=== PATIENT | male | born 1995 | race Caucasian/White ===

== ENCOUNTER 2019-11-06 07:52 | Emergency (ER) | payer OTHER, SELFPAY ==
[2019-11-06 08:00] VITALS: BP 131/74; PULSE 89; RESP 18; TEMP 36; O2SAT 98; BMI 22.4
[2019-11-06 08:08] LABS: Bacteria Urine None Seen
--- NOTE | 2019-11-06 08:09 | DI.CT.S_ITS ---
PROCEDURE: CT ABDOMEN PELVIS WO CON INDICATIONS: hematuria RLQ pain TECHNIQUE: Noncontrast 5 mm thick sections acquired from the diaphragms to the symphysis. 5 mm coronal and sagittal reformats were then performed. For radiation dose reduction, the following was used: automated exposure control, adjustment of mA and/or kV according to patient size. COMPARISON: None. FINDINGS: Image quality: Excellent. ABDOMEN: Lung bases: Lung bases are clear. Heart size is normal. Solid organs: Liver is enlarged, and demonstrates diffusely decreased density, indicating fatty infiltration. Gallbladder is within normal limits . Pancreas is normal in contours. Spleen is normal in size. No adrenal nodules. Kidneys are normal in size. There are small nonobstructing bilateral renal calculi, largest of which is in the left interpolar kidney measuring 4 mm diameter. There is no left hydronephrosis nor left ureteral dilatation. There is mild right hydronephrosis and mild diffuse right ureteral dilatation. There are 2 adjacent calculi within the distal right ureter, larger of which is more distal, measuring 5 mm and 452 Hounsfield units. The smaller is just proximal to this larger calculus, measuring 3 mm and 286 Hounsfield units. Peritoneum and bowel: Unenhanced bowel loops demonstrate normal wall thickness and caliber. No free fluid or air. Normal appendix. Nodes and vessels: No retroperitoneal or mesenteric adenopathy by size criteria. Aorta and inferior vena cava are normal in caliber. Miscellaneous: No ventral hernias. PELVIS: Genitourinary: Bladder wall thickness is normal. Miscellaneous: No inguinal hernias or adenopathy. Bones: No suspicious bony lesions. No vertebral body compression fractures. IMPRESSION: 1. Distal right ureteral calculi, associated with mild right hydronephrosis. 2. Small nonobstructing bilateral renal calculi. 3. Normal appendix. 4. Hepatic steatosis. Dictated by: Paulette Laughlin M.D. on 11/06/2019 at 8:38 Approved by: Paulette Laughlin M.D. on 11/06/2019 at 8:41
[2019-11-06 08:12] LABS: Appearance Urine UA TURBID; Bilirubin Urine UA 1+ (NEGATIVE); Color Urine UA RED; Glucose Urine UA NEGATIVE (Negative); Ketones Urine UA TRACE (NEGATIVE); Leukocyte Esterase Urine UA TRACE (NEGATIVE); Nitrite Urine UA NEGATIVE (Negative); Occult Blood Urine UA 3+ (Negative); Protein Urine UA 2+ (Negative); pH Urine UA 6.5 (4.5-8.0)
[2019-11-06 08:14] LABS: Add Manual Diff / Slide Review NO; Basophils Absolute Auto 100 /uL (0-100); Basophils Percent Auto 2.4 % (0-2); Eosinophils Absolute Auto 200 /uL (0-450); Eosinophils Percent Auto 3.3 % (2-4); Hematocrit 48.9 % (41-53); Hemoglobin 16.3 g/dL (13.5-17.5); Lymphocytes Absolute Auto 1800 /uL (1100-4500); Lymphocytes Percent Auto 31.3 % (25-40); Mean Corpuscular HGB Conc 33.3 % (30-36); Mean Corpuscular Hemoglobin 30.9 PG (26-34); Mean Corpuscular Volume 92.6 fL (80-100); Monocytes Absolute Auto 700 /uL (0-900); Monocytes Percent Auto 11.8 % (3-14); Neutrophils Absolute Auto 3000 /uL (1500-7000); Neutrophils Percent Auto 51.2 % (50-75); Platelet Count 239 X10^3/uL (150-400); Red Blood Cell Count 5.28 X10^6/uL (4.5-5.9); Red Cell Distribution Width 12.8 % (11.6-14.8); White Blood Cell Count 5.8 X10^3/uL (4.5-11.0)
--- NOTE | 2019-11-06 08:16 | ED_ITS ---
HPI - Abdominal Pain General Chief Complaint: Abdominal Pain Stated Complaint: has been peeing blood all day yesterday Time Seen by Provider: 11/06/19 07:56 Source: patient and family Mode of arrival: Ambulatory Limitations: no limitations History of Present Illness HPI narrative: cc: urinating Blood. HPI: The patient is a 24-year-old male who presents to the emergency department with the onset of urinating blood this morning. He developed pain in his right lower quadrant yesterday which radiates down into his area of the inguinal ligament and his scrotum. He has had 1 kidney stone before. The pain feels s imilar to that. He denies any fall or injury. The pain is 10/10 in intensity and is very uncomfortable rubbing holding the area very reluctant to answer questions. He has felt nauseous but has not vomited. He has had no fever chills or sweats. He denies any difficulty with a sore throat talking or dysphagia as well as no shortness of breath cough chest pain palpitations or dizziness. He states that he has not vomited in years. He has had no change in bowel movements. He is not on any blood thinners. He admits to smoking cigarettes drinking alcohol and smoking marijuana. He denies a history of diabetes mellitus hypertension asthma or any congenital heart disease. He denies a history venereal disease. He denies a history of hepatitis TB or HIV. He has not had Topping it and denies being tested for it. Related Data Previous Rx's Medication Instructions Recorded amoxicillin-pot clavulanate 875 mg PO BID #20 tab 05/07/16 [Augmentin] fluticasone propionate 1 spray INTRANASAL BID #16 gm 05/07/16 cephalexin [Keflex] 500 mg PO TID #15 cap 11/06/19 ondansetron HCl [Zofran] 4 mg PO Q6H PRN #12 tab 11/06/19 oxycodone 5 mg PO Q6H PRN #10 tab 11/06/19 tramadol 50 mg PO Q6H PRN #12 tab 11/06/19 Allergies Allergy/AdvReac Type Severity Reaction Status Date / Time No Known Drug Allergies Allergy Verified 11/06/19 08:12 Review of Systems Review of Systems Narrative: His review of systems were all negative except for those mentioned in history of present illness. Patient History Social History Smoking Status: Current every day smoker Smoking Status: Current every day smoker alcohol intake frequency: 3 or more drinks per day Substance Use Type: does not use Exam Narrative Exam Narrative: PHYSICAL EXAM: CONSTITUTIONAL: Awake, Alert, Oriented, in moderate distress. He is writhing in pain holding his right lower quadrant. HEAD: AT/NC EENT: PERRL, FROM of eyes, no discharge, no nystagmus, no icterus. NOSE:No epistaxis or nasal drainage MOUTH:Oral mucosa is moist and pink. NECK: Supple, no obvious JVD, Trachea is midline without stridor. SPINE: Palpation of the cervical, Thoracic, Lumbar or Sacral spine reveals no gross deformity or tenderness. Mild right CVA tenderness. THORAX: No deformity, retractions, chest wall tenderness. LUNGS: Clear, symmetrical breath sounds without respiratory distress. HEART: Normal heart tones, regular rhythm and rate without murmur. ABDOMEN: Soft, , mild tenderness in the right lower quadrant over the inguinal ligament without gurading, BS present. does not allow scrotal exam at this time, too uncomfortable EXTREMITIES: No edema, deformity, tenderness or cyanosis. SKIN: No rash, bruising, petechiae or purpura. NEURO: Awake, alert, oriented, conversive, cranial nerves II-XII are symmetrical , moves all 4 extremities and is ambulatory. MENTAL HEALTH: Does not appear anxious or depressed. Initial Vital Signs Initial Vital Signs: Vital Signs Temperature 96.8 F L 11/06/19 08:00 Pulse Rate 89 11/06/19 08:00 Respiratory Rate 18 11/06/19 08:00 Blood Pressure 131/74 11/06/19 08:00 Pulse Oximetry 98 11/06/19 08:00 Course Course Course Narrative: CT of the patient's abdomen reveals: IMPRESSION: 1. Distal right ureteral calculi, associated with mild right hydronephrosis. 2. Small nonobstructing bilateral renal calculi. 3. Normal appendix. 4. Hepatic steatosis. Dictated by: Paulette Laughlin M.D. on 11/06/2019 at 8:38 Approved by: Paulette Laughlin M.D. on 11/06/2019 at 8:41 The patient has 2 stones in the distal ureter 1 of which is 5 mm the other 1 is 3 mm. She should be able to pass thse stones. The patient will be referred to Dr. Moore. Orders Ordered: Discontinued Medications Sodium Chloride (Normal Saline 0.9%) 1,000 mls @ 1,000 mls/hr IV BOLUS ONE Stop: 11/06/19 09:10 Last Infusion: 11/06/19 09:39 Dose: 0 mls/hr Documented by: Admin: 11/06/19 08:18 Dose: 1,000 mls/hr Documented by: CAM Sodium Chloride (Normal Saline 0.9%) 1,000 mls @ 1,000 mls/hr IV BOLUS ONE Stop: 11/06/19 09:14 Last Admin: 11/06/19 09:39 Dose: Not Given Documented by: ARACELY Ketorolac Tromethamine (Toradol) 30 mg IV NOW ONE Stop: 11/06/19 08:25 Last Admin: 11/06/19 08:53 Dose: 30 mg Documented by: ARACELY Morphine Sulfate (Morphine) 4 mg IV NOW ONE Stop: 11/06/19 08:10 Last Admin: 11/06/19 08:17 Dose: 4 mg Documented by: CAM Tamsulosin HCl (Flomax) 0.4 mg PO NOW ONE Stop: 11/06/19 10:04 Last Admin: 11/06/19 10:14 Dose: 0.4 mg Documented by: CHANTELLE Vital Signs Vital signs: Vital Signs - 8 hr 11/06/19 08:00 11/06/19 08:20 11/06/19 08:30 Temperature 96.8 F L Pulse Rate 89 82 76 Respiratory Rate 18 Blood Pressure 131/74 130/92 H Pulse Oximetry 98 100 97 11/06/19 09:00 11/06/19 09:30 Temperature Pulse Rate 66 67 Respiratory Rate Blood Pressure 129/75 127/81 Pulse Oximetry 93 100 MDM - Abdominal Pain Lab Data Result diagrams: 11/06/19 08:00 11/06/19 08:00 Labs: Lab Results 11/06/19 11/06/19 11/06/19 Range/Units 08:00 08:00 08:00 WBC 5.8 (4.5-11.0) X10^3/uL RBC 5.28 (4.5-5.9) X10^6/uL Hgb 16.3 (13.5-17.5) g/dL Hct 48.9 (41-53) % MCV 92.6 (80-100) fL MCH 30.9 (26-34) PG MCHC 33.3 (30-36) % RDW 12.8 (11.6-14.8) % Plt Count 239 (150-400) X10^3/uL Neut % (Auto) 51.2 (50-75) % Lymph % (Auto) 31.3 (25-40) % [place] % (Auto) 11.8 (3-14) % Eos % (Auto) 3.3 (2-4) % Baso % (Auto) 2.4 H (0-2) % Neut # (Auto) 3000 (7130-3768) /uL Lymph # (Auto) 1800 (3978-6301) /uL [place] # (Auto) 700 (0-900) /uL Eos # (Auto) 200 (0-450) /uL Baso # (Auto) 100 (0-100) /uL PT 10.5 (10.1-12.7) SECONDS INR 0.9 (0.9-1.3) APTT 32 (26.4-36.2) SECONDS Sodium 139 (137-145) mmol/L Potassium 3.6 (3.4-5.1) mmol/L Chloride 104 (98-107) mmol/L Carbon Dioxide 27 (22-32) mmol/L BUN 13 (9-20) mg/dL Creatinine 0.89 (0.66-1.25) mg/dL Estimated GFR > 60.0 (>60) mL/min BUN/Creatinine Ratio 14.6 (6-22) Glucose 105 H (70-100) mg/dL Calcium 9.9 (8.4-10.2) mg/dL Total Bilirubin 1.4 H (0.2-1.3) mg/dL AST 62 H (17-59) IU/L ALT 92 H (<50) IU/L Alkaline Phosphatase 95 (38-126) U/L Total Protein 7.6 (6.3-8.2) g/dL Albumin 4.7 (3.5-5.0) g/dL Globulin 2.9 (1.7-4.1) g/dL Albumin/Globulin Ratio 1.6 (1.0-2.8) Lipase (23-300) U/L Urine Color Urine Appearance Urine pH (4.5-8.0) Ur Specific [place] (1.000-1.035) Urine Protein (Negative) Urine Glucose (UA) (Negative) g/dL Urine Ketones (NEGATIVE) Urine Occult Blood (Negative) Urine Nitrate (Negative) Urine Bilirubin (NEGATIVE) Ur Bilirubin Confirm (Negative) Urine Urobilinogen (0.2) E.U./dL Ur Leukocyte Esterase (NEGATIVE) Urine RBC (0-5/HPF) Urine WBC (0-5/HPF) Urine Bacteria (None) Ur Culture Indicated? U Opiates 300ng/mL cut (Negative) Ur Oxycodone Screen (Negative) Urine Methadone Screen (Negative) Ur Barbiturates Screen (Negative) U Tricyclic Antidepress (Negative) Ur Phencyclidine Scrn (Negative) Ur Amphetamines Screen (Negative) U Methamphetamines Scrn (Negative) Ur MDMA Scrn (Ecstasy) (Negative) U Benzodiazepines Scrn (Negative) Urine Cocaine Screen (Negative) U Marijuana (THC) Screen (Negative) Ethyl Alcohol 52 H ( - 10) mg/dL 11/06/19 11/06/19 11/06/19 Range/Units 08:00 08:00 08:00 WBC (4.5-11.0) X10^3/uL RBC (4.5-5.9) X10^6/uL Hgb (13.5-17.5) g/dL Hct (41-53) % MCV (80-100) fL MCH (26-34) PG MCHC (30-36) % RDW (11.6-14.8) % Plt Count (150-400) X10^3/uL Neut % (Auto) (50-75) % Lymph % (Auto) (25-40) % [place] % (Auto) (3-14) % Eos % (Auto) (2-4) % Baso % (Auto) (0-2) % Neut # (Auto) (2663-4607) /uL Lymph # (Auto) (0946-0001) /uL [place] # (Auto) (0-900) /uL Eos # (Auto) (0-450) /uL Baso # (Auto) (0-100) /uL PT (10.1-12.7) SECONDS INR (0.9-1.3) APTT (26.4-36.2) SECONDS Sodium (137-145) mmol/L Potassium (3.4-5.1) mmol/L Chloride (98-107) mmol/L Carbon Dioxide (22-32) mmol/L BUN (9-20) mg/dL Creatinine (0.66-1.25) mg/dL Estimated GFR (>60) mL/min BUN/Creatinine Ratio (6-22) Glucose (70-100) mg/dL Calcium (8.4-10.2) mg/dL Total Bilirubin (0.2-1.3) mg/dL AST (17-59) IU/L ALT (<50) IU/L Alkaline Phosphatase (38-126) U/L Total Protein (6.3-8.2) g/dL Albumin (3.5-5.0) g/dL Globulin (1.7-4.1) g/dL Albumin/Globulin Ratio (1.0-2.8) Lipase 62 (23-300) U/L Urine Color Red Urine Appearance Turbid Urine pH 6.5 (4.5-8.0) Ur Specific [place] 1.020 (1.000-1.035) Urine Protein 2+ H (Negative) Urine Glucose (UA) Negative (Negative) g/dL Urine Ketones Trace H (NEGATIVE) Urine Occult Blood 3+ H (Negative) Urine Nitrate Negative (Negative) Urine Bilirubin 1+ H (NEGATIVE) Ur Bilirubin Confirm Positive H (Negative) Urine Urobilinogen 2.0 H (0.2) E.U./dL Ur Leukocyte Esterase Trace H (NEGATIVE) Urine RBC >100/hpf H (0-5/HPF) Urine WBC 30-100/hpf H (0-5/HPF) Urine Bacteria None seen (None) Ur Culture Indicated? Specimen cultured U Opiates 300ng/mL cut Negative (Negative) Ur Oxycodone Screen Negative (Negative) Urine Methadone Screen Negative (Negative) Ur Barbiturates Screen Negative (Negative) U Tricyclic Antidepress Negative (Negative) Ur Phencyclidine Scrn Negative (Negative) Ur Amphetamines Screen Positive H (Negative) U Methamphetamines Scrn Negative (Negative) Ur MDMA Scrn (Ecstasy) Negative (Negative) U Benzodiazepines Scrn Negative (Negative) Urine Cocaine Screen Positive H (Negative) U Marijuana (THC) Screen Negative (Negative) Ethyl Alcohol ( - 10) mg/dL Discharge Plan Departure Patient Disposition: Home Clinical Impression: Acute right lower quadrant pain, Ureteric colic, Calculus, ureteral Hematuria Qualifiers: Hematuria type: gross Qualified Code(s): R31.0 - Gross hematuria Hydronephrosis Qualifiers: Hydronephrosis type: with ureteral calculous obstruction Qualified Code(s): N 13.2 - Hydronephrosis with renal and ureteral calculous obstruction Discharge Date/Time: 11/06/19 10:48 Instructions: DI for Kidney Stones Activity Restrictions/Additional Instructions: 1. Drink 2-4 L of fluid per day. 2. Follow-up with your primary care physician in 48-72 hours. 3. Follow-up with the urologist , call his office for an appointment. 4. Take Tylenol 500 mg every 4 hours or 1 g every 6 hours for the pain and discomfort. 5. For the pain on relieved by Tylenol take tramadol 50 mg 1-2 tablets every 6 hours. 6. For pain on relieved by Tylenol and tramadol take oxycodone 5 mg worse. 7. For nausea and vomiting take Zofran 4 mg every 6 hours. 8 if you develop severe pain on relieved by this cocktail you need to return to the emergency department. 9. Take Keflex 500 mg 3 times a day for the next 5 days. 10 take Flomax as prescribed per day for the next 7 days. Prescriptions: New cephalexin [Keflex] 500 mg capsule 500 mg PO TID Qty: 15 RF: 0 ondansetron HCl [Zofran] 4 mg tablet 4 mg PO Q6H PRN (Reason: nausea and vomiting) Qty: 12 RF: 0 tramadol 50 mg tablet 50 mg PO Q6H PRN (Reason: pain) Qty: 12 RF: 0 oxycodone 5 mg tablet 5 mg PO Q6H PRN (Reason: pain) Qty: 10 RF: 0 No Action fluticasone propionate 16 GM spray,suspension 1 spray Intranasal BID Qty: 16 RF: 0 amoxicillin-pot clavulanate [Augmentin] 875 MG/125 MG tablet 875 mg PO BID Qty: 20 RF: 0 Referrals: Amy Moore MD [Physician] - (right ureteral stone with mild hydronephrosis )
[2019-11-06 08:17] LABS: Ur Creatinine Normal (Normal); Ur Specific Gravity Normal (Normal); Urine pH Normal (Normal)
[2019-11-06] MEDS: MORPHINE 4 MG/ML INJ IV (08:17)
[2019-11-06 08:18] LABS: UR Morphine/Opiate cutoff 300 Negative (Negative); Urine Amphetamines Positive (Negative); Urine Barbiturates Negative (Negative); Urine Benzodiazepines Negative (Negative); Urine Cocaine Positive (Negative); Urine MDMA Negative (Negative); Urine Methadone Negative (Negative); Urine Methamphetamines Negative (Negative); Urine Oxycodone Negative (Negative); Urine Phencyclidine Negative (Negative); Urine Tetrahydrocannabinol Negative (Negative); Urine Tricyclic Antidepressant Negative (Negative)
[2019-11-06] MEDS: SODIUM CHLORIDE 0.9% 1,000 ML 1000 ML IV (08:18)
[2019-11-06 08:19] LABS: INR 0.9 (0.9-1.3); Prothrombin Time 10.5 SECONDS (10.1-12.7)
[2019-11-06 08:20] VITALS: PULSE 82; O2SAT 100
[2019-11-06 08:20] LABS: RBC Urine >100/HPF (0-5/HPF)
[2019-11-06 08:21] LABS: Culture Indicated Urine Specimen Cultured; WBC Urine 30-100/HPF (0-5/HPF)
[2019-11-06 08:22] LABS: PTT Partial Thromboplastin Tim 32 SECONDS (26.4-36.2)
[2019-11-06 08:23] LABS: Ictotest Urine Positive (Negative)
[2019-11-06 08:24] LABS: Alanine Aminotransferase 92 IU/L (<50); Albumin 4.7 g/dL (3.5-5.0); Albumin Globulin Ratio 1.6 (1.0-2.8); Alkaline Phosphatase 95 U/L (38-126); Aspartate Aminotransferase 62 IU/L (17-59); BUN Creatinine Ratio 14.6 (6-22); Bilirubin Total 1.4 mg/dL (0.2-1.3); Blood Urea Nitrogen 13 mg/dL (9-20); Calcium 9.9 mg/dL (8.4-10.2); Carbon Dioxide 27 mmol/L (22-32); Chloride 104 mmol/L (98-107); Estimated Glomerular Filt Rate > 60.0 mL/min (>60); Ethanol (ETOH) 52 mg/dL; Globulin 2.9 g/dL (1.7-4.1); Glucose 105 mg/dL (70-100); HEMOLYSIS < 15 (0-50); Potassium 3.6 mmol/L (3.4-5.1); Sodium 139 mmol/L (137-145); Total Protein 7.6 g/dL (6.3-8.2)
[2019-11-06 08:30] VITALS: BP 130/92; PULSE 76; O2SAT 97
[2019-11-06 08:35] LABS: Lipase 62 U/L (23-300)
[2019-11-06] MEDS: KETOROLAC 60 MG/2 ML VIAL 30 MG IV (08:53)
[2019-11-06 09:00] VITALS: BP 129/75; PULSE 66; O2SAT 93
[2019-11-06 09:30] VITALS: BP 127/81; PULSE 67; O2SAT 100
[2019-11-06 10:00] VITALS: BP 128/70; PULSE 78; O2SAT 99
--- NOTE | 2019-11-06 10:02 | PC.NURSE ---
Patient given a urinal and strainer for kidney stones.
[2019-11-06] MEDS: TAMSULOSIN 0.4 MG CAPSULE PO (10:14)
== END 2019-11-06 10:48 | disposition home or self-care (01) ==
PROVIDERS: Emergency Provider Emergency Medicine
DX: N13.2 Hydronephrosis with renal and ureteral calculous obstruction (principal); R31.0 Gross hematuria; N23 Unspecified renal colic
CPT/HCPCS: 36415; 74176; 80053; 80305; 80320; 81001; 83690; 85025; 85610; 85730; 87086; 96361; 96374; 96375; 99284; J1885; J2270

== ENCOUNTER 2019-12-05 00:52 | Emergency (ER) | payer OTHER, SELFPAY ==
[2019-12-05 01:02] VITALS: BP 135/95; PULSE 94; RESP 18; TEMP 36.5; O2SAT 94; BMI 23.2
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
[2019-12-05 02:45] VITALS: BP 132/87; PULSE 95; RESP 18; O2SAT 98
== END 2019-12-05 02:46 | disposition home or self-care (01) ==
PROVIDERS: Emergency Provider Emergency Medicine
DX: S02.642A Fracture of ramus of left mandible, initial encounter for closed fracture (principal); S02.19XA Other fracture of base of skull, initial encounter for closed fracture; Y04.2XXA Assault by strike against or bumped into by another person, initial encounter
CPT/HCPCS: 70486; 99283; 99284

== ENCOUNTER → 2020-10-16 18:09 | Outpatient (CLI) | payer OTHER, SELFPAY ==
[2020-10-16 19:11] LABS: COVID19 -Nasal RAPID Negative (Negative)
== END ==
PROVIDERS: Referring Provider Family Medicine; Visit Provider Family Medicine
DX: Z20.822 Contact with and (suspected) exposure to COVID-19 (principal)
CPT/HCPCS: 87635

== ENCOUNTER 2022-02-21 17:54 | Emergency (ER) | payer SELFPAY ==
[2022-02-21 18:21] VITALS: BP 141/88; PULSE 107; RESP 15; TEMP 36.2; O2SAT 99; BMI 22.4
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
--- NOTE | 2022-02-21 19:44 | ED.LOWEXIN ---
HPI - Extremity Injury (Lower) <AUSTIN Blake - Last Filed: 02/21/22 19:58> General Chief Complaint: Extremity Injury, Lower Stated Complaint: R foot pain, hit concrete floor Time Seen by Provider: 02/21/22 19:40 Source: patient Mode of arrival: Family Vehicle History of Present Illness HPI Narrative: This is a 27-year-old male presents to the emergency department after he injured his right foot trying to Stomp on something but hit a concrete floor instead. Complains of severe heel pain, states that he has numbness to the plantar aspect of his forefoot, denies any open wound. States this happened just prior to arrival, denies ankle or knee pain. He states that his midfoot on the plantar aspect is itchy, swollen, and when he puts weight on his foot it causes severe pain. Related Data Previous Rx's Medication Instructions Recorded amoxicillin 875 mg-potassium 875 mg PO BID #20 tabs 05/07/16 clavulanate 125 mg tablet (Augmentin) fluticasone propionate 50 1 spray intranasal BID ##16 05/07/16 mcg/actuation nasal spray,suspension cephalexin 500 mg capsule (Keflex) 500 mg PO TID #15 caps 11/06/19 ondansetron HCl 4 mg tablet 4 mg PO Q6H PRN nausea and 11/06/19 (Zofran) vomiting #12 tabs oxycodone 5 mg tablet 5 mg PO Q6H PRN pain #10 tabs 11/06/19 tramadol 50 mg tablet 50 mg PO Q6H PRN pain #12 tabs 11/06/19 tramadol 50 mg tablet 50 mg PO BID PRN pain #10 tabs 02/21/22 Allergies Allergy/AdvReac Type Severity Reaction Status Date / Time No Known Drug Allergies Allergy Verified 02/21/22 18:19 Review of Systems <AUSTIN Blake - Last Filed: 02/21/22 19:58> Review of Systems Narrative: Review of systems is negative for acute abnormalities unless otherwise noted in HPI Patient History <AUSTIN Blake - Last Filed: 02/21/22 19:58> Medical History Sinusitis, acute Social History Smoking Status: Current every day smoker Smoking Status: Current every day smoker tobacco type: cigarettes alcohol intake frequency: 3 or more drinks per day Substance Use Type: does not use Exam <AUSTIN Blake - Last Filed: 02/21/22 19:58> Narrative Exam Narrative: Reviewed vitals signs and nursing notes. General: cooperative, comfortable, in no acute distress, well groomed HEENT: symmetrical facial expressions, moist mucous membranes MSK: moves all extremities, neurovascularly intact, no weakness, normal tone, right foot with normal range of motion, dorsiflexion and plantar extension are intact without deficit, PT and DP pulses are 2+, brisk cap refill, no tenderness to bilateral malleoli, no tenderness to dorsum of the metatarpals, proximal 5th metatarsal, patient complains of pain at the calcaneus and edema to the plantar aspect of the midfoot with numbness and tingling to the forefoot on the plantar aspect only. Sensation is intact to the dorsum forefoot midfoot and hindfoot, there is ecchymosis to the mid foot on the plantar aspect with edema, no deformities, patient has a history of prior MTP joint fracture of the great toe 2 times. Skin: brisk capillary refill, without pallor or erythema, no open wounds, ecchymosis to the plantar aspect of his right mid foot Psych: mental status is grossly normal, congruent mood, normal affect, pleasant and cooperative Initial Vital Signs Initial Vital Signs: Vital Signs Temperature 97.1 F L 02/21/22 18:21 Pulse Rate 107 H 02/21/22 18:21 Respiratory Rate 15 02/21/22 18:21 Blood Pressure 141/88 H 02/21/22 18:21 Pulse Oximetry 99 02/21/22 18:21 Oxygen Delivery Method 02/21/22 18:21 <Gayle Guajardo DO - Last Filed: 02/22/22 03:11> Initial Vital Signs Initial Vital Signs: Vital Signs Temperature 97.1 F L 02/21/22 18:21 Pulse Rate 107 H 02/21/22 18:21 Respiratory Rate 15 02/21/22 18:21 Blood Pressure 141/88 H 02/21/22 18:21 Pulse Oximetry 99 02/21/22 18:21 Oxygen Delivery Method 02/21/22 18:21 Procedures <AUSTIN Blake - Last Filed: 02/21/22 19:58> Orthopedic Splinting/Casting Injury #1: Lower Extremity Injury Location: foot Lower Extremity Immobilizer: post-op shoe Post splinting neuro exam: intact Post splinting vascular exam: intact Placed by: Nursing Course <AUSTIN Blake - Last Filed: 02/21/22 19:58> Orders Ordered: ED Orders 02/21/22 18:25 XR foot RT min 3V Stat Discontinued Medications Ketorolac Tromethamine (Ketorolac 30 Mg/Ml Vial) 15 mg IM NOW ONE Stop: 02/21/22 19:46 Last Admin: 02/21/22 19:56 Dose: 15 mg Documented By: MAY Oxycodone/Acetaminophen (Oxycodone/Acetaminophen 5/325 Tablet) 1 tab PO NOW ONE Stop: 02/21/22 19:46 Last Admin: 02/21/22 19:57 Dose: 1 tab Documented By: MAY Vital Signs Vital signs: Vital Signs - 8 hr 02/21/22 18:21 Temperature 97.1 F L Pulse Rate 107 H Respiratory Rate 15 Blood Pressure 141/88 H Pulse Oximetry 99 Oxygen Delivery Method Room Air <Gayle Guajardo DO - Last Filed: 02/22/22 03:11> Orders Ordered: ED Orders 02/21/22 18:25 XR foot RT min 3V Stat Discontinued Medications Ketorolac Tromethamine (Ketorolac 30 Mg/Ml Vial) 15 mg IM NOW ONE Stop: 02/21/22 19:46 Last Admin: 02/21/22 19:56 Dose: 15 mg Documented By: MAY Oxycodone/Acetaminophen (Oxycodone/Acetaminophen 5/325 Tablet) 1 tab PO NOW ONE Stop: 02/21/22 19:46 Last Admin: 02/21/22 19:57 Dose: 1 tab Documented By: MAY Vital Signs Vital signs: Vital Signs - 8 hr 02/21/22 18:21 Temperature 97.1 F L Pulse Rate 107 H Respiratory Rate 15 Blood Pressure 141/88 H Pulse Oximetry 99 Oxygen Delivery Method Room Air MDM - Extremity Injury (Lower) <AUSTIN Blake - Last Filed: 02/21/22 19:58> Imaging Data Chest x-ray: Radiologist's Impression: PROCEDURE:? XR FOOT RT MIN 3V ? INDICATIONS:? injury ? TECHNIQUE:? 3 views of the foot were acquired.? ? COMPARISON:? None. ? FINDINGS:? ? Bones:? No fractures or dislocations.? No suspicious bony lesions.? ? Soft tissues:? No tibiotalar joint effusion.? Achilles tendon appears normal.? ? ? IMPRESSION:? No visualized acute fracture or dislocation. However, if clinical concern and/or pain persist, short interval imaging followup in 7-10 days is recommended, as occult injury cannot be definitively excluded. ? ? Dictated by: Jaye Chavis M.D. on 02/21/2022 at 19:43 ? ? Approved by: Jaye Chavis M.D. on 02/21/2022 at 19:44 ? MDM Narrative Medical decision making narrative: This is a 27-year-old male presents to the emergency department after he stomped on something to crush it but missed and hit the concrete instead. Complains of pain to his calcaneus of the right, edema to the mid foot with numbness and tingling to the plantar forefoot with normal sensation to the dorsum, deformities, normal range of motion, neurovascularly intact without deficit. X-ray of his right foot does not show visualized acute fracture dislocation, palpation of the metatarsals on the dorsum did not produce pain, proximal 5th metatarsal was nontender, no tenderness to his right ankle or a goal ligaments, he does not have tenderness to his right knee and is able to bear weight. He was fitted in a postop shoe, given Percocet and was complaining Toradol in the emergency department for his pain. Gave him prescription of tramadol, encouraged him to follow-up at [facility] if he has worsening of his pain. Patient is appropriate and amenable to discharge home. Vital signs are stable on repeat examination is unremarkable. Patient has been informed of results. Patient has been given strict return to ER precautions for any new or worsening symptoms. Patient understands to follow up closely with outpatient providers as instructed. Patient understands plan and agrees to discharge home. All questions and concerns answered at this time. Discharge Plan Departure Patient Disposition: Home Clinical Impression: Injury of foot, right Instructions: DI for Foot Pain, DI for Foot Sprain Activity Restrictions/Additional Instructions: *You have been diagnosed with an injury to your right foot without fracture. Please use ibuprofen, elevation, ice and Tylenol as needed for your pain for the next few days. Please follow-up at [facility] if your pain is worsening or if it is not getting better after 1-2 weeks. There is no visualized fracture on your x-ray today but if it is persistent, it is worth having another x-ray over the orthopedic office. Please use the walking shoe, crutches or a cane will be helpful. Ambulate as tolerated. This is most likely soft tissue injury which can take a while to heal especially if you are on your feet a lot. You can take Tylenol and ibuprofen with the tramadol that I gave you for pain. I wish you the best, sorry that this is a painful injury. *What to do: *Please continue to take your regular medications as directed. [x ] New medication prescriptions sent to your pharmacy: [ [facility]] [ ] New medication written as a paper prescription [ ] No new medications given *Please follow up with your primary care provider in 2-3 days, call for an appointment. Let them know you were seen in the Emergency Department and that we asked that you be seen for follow-up. We will electronically transmit a record of today's note if your PCP is in our system *If you do not have a primary care provider please contact [phone] to establish care with one of the [facility] primary care providers. *Return to Emergency Department if you should have any new, worsening, or concerning symptoms, such as [fever greater than 101F, chills, worsening pain, persistent vomiting or other bothersome symptoms]. Prescriptions: New tramadol 50 mg tablet 50 mg PO BID PRN (Reason: pain) Qty: 10 0RF No Action fluticasone propionate 16 GM spray,suspension 1 spray Intranasal BID Qty: 16 0RF amoxicillin-pot clavulanate [Augmentin] 875 MG/125 MG tablet 875 mg PO BID Qty: 20 0RF cephalexin [Keflex] 500 mg capsule 500 mg PO TID Qty: 15 0RF ondansetron HCl [Zofran] 4 mg tablet 4 mg PO Q6H PRN (Reason: nausea and vomiting) Qty: 12 0RF tramadol 50 mg tablet 50 mg PO Q6H PRN (Reason: pain) Qty: 12 0RF Rx Instructions: Take 1-2 tablets every 6 hours for kidney stone pain unrelieved by tylenol oxycodone 5 mg tablet 5 mg PO Q6H PRN (Reason: pain) Qty: 10 0RF Rx Instructions: Take 1-2 tablets every 6 hours for kidney stone pain unrelieved by tramadol Referrals: [facility] [Provider Group] (Follow-up if pain is worsening or not improving) Visit Report Forms: Patient Portal/API <Gayle Guajardo DO - Last Filed: 02/22/22 03:11> Cosign ED Attending Cosalyssaature Attestation: I was immediately available in the department for consultation. Documentation has been reviewed. I agree with assessment and plan.
--- NOTE | 2022-02-21 19:50 | PC.NURSE ---
States that he was going to kick a piece of wood to break it and he missed kicking the pavement - c/o pain to the area - no obvious deformity noted
[2022-02-21] MEDS: KETOROLAC 30 MG/ML VIAL 15 MG IM (19:56)
[2022-02-21] MEDS: OXYCODONE/ACETAMINOPHEN 5/325 TABLET 1 TAB PO (19:57)
== END 2022-02-21 20:25 | disposition home or self-care (01) ==
PROVIDERS: Emergency Provider Nurse Practitioner Critical Care Medicine
DX: S99.921A Unspecified injury of right foot, initial encounter (principal); W22.8XXA Striking against or struck by other objects, initial encounter
CPT/HCPCS: 73630; 96372; 99283; J1885

== ENCOUNTER 2022-03-13 18:48 | Emergency (ER) | payer SELFPAY ==
[2022-03-13] VITALS (13 sets, daily range): BP systolic 124–154; BP diastolic 75–99; PULSE 86–123; RESP 16–18; TEMP 37.3–39.2; O2SAT 92–100; BMI 22.5
--- NOTE | 2022-03-13 19:13 | DI.RAD.S_ITS ---
PROCEDURE: XR CHEST 1V INDICATIONS: suspected sepsis TECHNIQUE: One view of the chest was acquired. COMPARISON: None. FINDINGS: Surgical changes and devices: None. Lungs and pleura: Lungs are clear. No pleural effusions or pneumothorax. Mediastinum: Mediastinal contours appear normal. Heart size is normal. Bones and chest wall: No suspicious bony lesions. Overlying soft tissues appear unremarkable. IMPRESSION: 1. No acute cardiopulmonary disease. Dictated by: Brandyn Thorpe M.D. on 03/13/2022 at 21:06 Approved by: Brandyn Thorpe M.D. on 03/13/2022 at 21:06
[2022-03-13] MEDS: ONDANSETRON 4 MG/2 ML INJ IV (19:20)
[2022-03-13] MEDS: ACETAMINOPHEN 325 MG TABLET 975 MG PO (19:21)
[2022-03-13] MEDS: IBUPROFEN 400 MG TABLET 800 MG PO (19:21)
[2022-03-13] MEDS: SODIUM CHLORIDE 0.9% 1,000 ML 1000 ML IV ×2 (19:21→20:55)
[2022-03-13 19:46] LABS: Add Manual Diff / Slide Review NO; Basophils Absolute Auto 0 /uL (0-100); Basophils Percent Auto 0.2 % (0-2); Eosinophils Absolute Auto 0 /uL (0-450); Eosinophils Percent Auto 0.6 % (2-4); Hematocrit 41.7 % (41-53); Hemoglobin 14.3 g/dL (13.5-17.5); Lymphocytes Absolute Auto 300 /uL (1100-4500); Lymphocytes Percent Auto 8.3 % (25-40); Mean Corpuscular HGB Conc 34.3 % (30-36); Mean Corpuscular Hemoglobin 30.5 PG (26-34); Mean Corpuscular Volume 88.9 fL (80-100); Monocytes Absolute Auto 1000 /uL (0-900); Monocytes Percent Auto 24.1 % (3-14); Neutrophils Absolute Auto 2800 /uL (1500-7000); Neutrophils Percent Auto 66.8 % (50-75); Platelet Count 210 X10^3/uL (150-400); Red Cell Distribution Width 13.2 % (11.6-14.8); White Blood Cell Count 4.2 X10^3/uL (4.5-11.0)
[2022-03-13 19:55] LABS: INR 1.1 (0.9-1.3); Prothrombin Time 12.8 SECONDS (10.1-12.7)
[2022-03-13 19:58] LABS: PTT Partial Thromboplastin Tim 36 SECONDS (26-36)
[2022-03-13 20:01] LABS: Alanine Aminotransferase 21 IU/L (<50); Albumin 4.4 g/dL (3.5-5.0); Albumin Globulin Ratio 1.6 (1.0-2.8); Alkaline Phosphatase 93 U/L (38-126); Aspartate Aminotransferase 21 IU/L (17-59); BUN Creatinine Ratio 13.1 (6-22); Bilirubin Total 0.7 mg/dL (0.2-1.3); Blood Urea Nitrogen 11 mg/dL (9-20); Calcium 8.7 mg/dL (8.4-10.2); Carbon Dioxide 25 mmol/L (22-32); Chloride 96 mmol/L (98-107); Estimated Glomerular Filt Rate > 60 mL/min (>60); Globulin 2.8 g/dL (1.7-4.1); Glucose 102 mg/dL (70-100); HEMOLYSIS < 15 (0-50); Lipase 33 U/L (23-300); Potassium 3.6 mmol/L (3.4-5.1); Sodium 130 mmol/L (137-145); Total Protein 7.2 g/dL (6.3-8.2)
[2022-03-13 20:16] LABS: Lactate (Lactic Acid) 0.9 mmol/L (0.7-2.1)
[2022-03-13 20:18] LABS: Procalcitonin 0.13 ng/mL (<0.5)
--- NOTE | 2022-03-13 20:49 | DI.CT.S_ITS ---
PROCEDURE: CT KIDNEY URETER BLADDER (KUB) INDICATIONS: achy, low back pain, trouble urinating history of kidney stones TECHNIQUE: Axial sections were acquired from the lung bases to the pubic symphysis. Coronal and sagittal reformats were performed. For radiation dose reduction, the following was used: automated exposure control, adjustment of mA and/or kV according to patient size. COMPARISON: [facility], CT, CT ABDOMEN PELVIS WO CON, 11/06/2019, 8:19. FINDINGS: Image quality: Excellent. Lung bases: There is minimal atelectasis. Heart: Heart is normal in size. URINARY: Right Kidney and Ureter: There are 4 nonobstructing right renal stones, with the largest measuring up to 0.4 cm. No hydronephrosis. No hydroureter. Left Kidney and Ureter: There are 2 clustered stones in the bladder in the region of the left ureterovesicular junction, with the largest stone measuring up to 0.4 cm. There is no associated left hydronephrosis or hydroureter. There are 5 additional nonobstructing left renal stones, with the largest measuring up to 0.4 cm. Bladder: Normal wall thickness. ABDOMEN: Liver: Noncontrast evaluation of the liver demonstrates no discrete mass. Gallbladder: Within normal limits without calcified gallstones. Biliary ducts: No biliary ductal dilatation. Pancreas: Unremarkable. Spleen: Normal in size. Adrenal Glands: No adrenal nodules. Stomach and Bowel: Stomach, small bowel loops, and colon are normal in caliber and wall thickness. The appendix is normal in appearance. Peritoneum: No abnormal intraperitoneal fluid. No free air. Ventral Wall: No hernia. Abdominal Nodes: No retroperitoneal or mesenteric adenopathy by size criteria. Vessels: Aorta and inferior vena cava are normal in size. PELVIS: Pelvic Organs: Unremarkable. Pelvic Nodes: No enlarged lymph nodes. Miscellaneous: No inguinal hernias identified. Bones: Visualized osseous structures demonstrate no suspicious focal lesions. IMPRESSION: 1. Urinary stones in the bladder at the left ureterovesicular junction suggestive of recently passed stones. No associated hydronephrosis or hydroureter. 2. Bilateral nephrolithiasis as described. 3. No evidence of appendicitis. Dictated by: Brandyn Thorpe M.D. on 03/13/2022 at 22:21 Approved by: Brandyn Thorpe M.D. on 03/13/2022 at 22:26
--- NOTE | 2022-03-13 20:50 | ED.MALEGU ---
HPI - Male Genitourinary General Chief complaint: Urogenital-Male Stated complaint: Urinating blood, Kidney stone Time Seen by Provider: 03/13/22 19:26 Source: patient Mode of arrival: Ambulatory History of Present Illness HPI Narrative: 27-year-old male smoker with history of kidney stones presents with his significant other and a chief complaint low back pain and difficulty with urination for the past few days. He states that he is concerned that he has a urine infection but also feels like he is passing a kidney stone. He states he has a severe low back pain without radiation into his legs that is worse when he moves and improves with rest. He is had subjective fever and chills and feels like he is achy all over. He denies any headache, blurred vision or trouble with speech. He has no neck pain or chest pain but has had a dry and hacking cough. He is nauseated but denies any vomiting. Related Data Previous Rx's Medication Instructions Recorded amoxicillin 875 mg-potassium 875 mg PO BID #20 tabs 05/07/16 clavulanate 125 mg tablet (Augmentin) fluticasone propionate 50 1 spray intranasal BID ##16 05/07/16 mcg/actuation nasal spray,suspension cephalexin 500 mg capsule (Keflex) 500 mg PO TID #15 caps 11/06/19 ondansetron HCl 4 mg tablet 4 mg PO Q6H PRN nausea and 11/06/19 (Zofran) vomiting #12 tabs oxycodone 5 mg tablet 5 mg PO Q6H PRN pain #10 tabs 11/06/19 tramadol 50 mg tablet 50 mg PO Q6H PRN pain #12 tabs 11/06/19 tramadol 50 mg tablet 50 mg PO BID PRN pain #10 tabs 02/21/22 hydrocodone 5 mg-acetaminophen 325 1 tab PO Q4-6H PRN pain #10 tabs 03/13/22 mg tablet ketorolac 10 mg tablet 10 mg PO Q6H PRN pain #14 tabs 03/13/22 ondansetron 4 mg disintegrating 4 mg PO TID-QID PRN nausea and 03/13/22 tablet vomiting #10 tabs oseltamivir 75 mg capsule (Tamiflu) 75 mg PO BID 5 days #10 caps 03/13/22 Allergies Allergy/AdvReac Type Severity Reaction Status Date / Time No Known Drug Allergies Allergy Verified 03/13/22 19:10 Review of Systems Review of Systems Narrative: GENERAL: See HPI HEENT: Denies sinus pain, ear pain, sore throat, difficulty swallowing, dizziness. RESPIRATORY: See HPI CARDIOVASCULAR: Denies chest pain, palpitations, orthopnea, edema, GASTROINTESTINAL: Denies nausea, vomiting, abdominal pain, diarrhea, constipation, melena. : See HPI MUSCULOSKELETAL: denies weakness, joint pain, or bony pain SKIN: Denies rash, skin lesions, or other NEUROLOGIC: Denies weakness, headache, numbness, change in speech, confusion, seizures, incoordination. PSYCHIATRIC: No concerning psychosocial issues. 12 point review of systems is negative except for those stated above Patient History Medical History (Updated 03/13/22 @ 23:31 by Baldev Buckley DO) Sinusitis, acute Social History Smoking Status: Current every day smoker Smoking Status: Current every day smoker tobacco type: cigarettes alcohol intake frequency: holidays/special occasions only Substance Use Type: does not use Exam Narrative Exam Narrative: GENERAL: [27] year old patient appears stated age. Well-developed patient, in mild distress. HEAD: Atraumatic. Normocephalic. EYES: Pupils equal round and reactive. Extraocular motions intact. No scleral icterus. No injection or drainage. ENT: Nose without bleeding, purulent drainage. Throat without erythema, tonsillar hypertrophy or exudate. Airway patent. NECK: Trachea midline. Non tender. No meningeal sign CARDIOVASCULAR: Regular rate and rhythm without murmurs, gallops, or rubs. RESPIRATORY: Clear to auscultation. Breath sounds equal bilaterally. No wheezes, rales, or rhonchi. GASTROINTESTINAL: Abdomen soft, non-tender, nondistended. EXTREMITIES: No edema or joint tenderness. BACK: Nontender without deformity or crepitance. No flank tenderness. NEURO: AOx3. SKIN: No rash or erythema of visible areas Initial Vital Signs Initial Vital Signs: Vital Signs Temperature 102.5 F H 03/13/22 19:10 Pulse Rate 120 H 03/13/22 19:10 Respiratory Rate 16 03/13/22 19:10 Blood Pressure 136/78 03/13/22 19:10 Pulse Oximetry 100 03/13/22 19:10 Oxygen Delivery Method 03/13/22 19:10 Course Orders Ordered: Discontinued Medications Acetaminophen (Acetaminophen 325 Mg Tablet) 975 mg PO NOW ONE Stop: 03/13/22 19:16 Last Admin: 03/13/22 19:21 Dose: 975 mg Documented By: KERI Hydrocodone Bitart/Acetaminophen (Hydrocodone/Acet 5/325 Prepack) 1 bottle MISC SEEINSTR ONE Stop: 03/13/22 23:27 Last Admin: 03/13/22 23:40 Dose: 1 bottle Documented By: MAY Hydromorphone HCl (Hydromorphone 0.5 Mg Inj) 0.5 mg IV NOW ONE Stop: 03/13/22 21:04 Last Admin: 03/13/22 21:17 Dose: 0.5 mg Documented By: ROBERTH Sodium Chloride (Normal Saline 0.9%) 1,000 mls @ 1,000 mls/hr IV BOLUS ONE Stop: 03/13/22 20:12 Last Infusion: 03/13/22 20:31 Dose: 1,000 mls/hr Documented By: Admin: 03/13/22 19:21 Dose: 1,000 mls/hr Documented By: KERI Sodium Chloride (Normal Saline 0.9%) 1,000 mls @ 1,000 mls/hr IV BOLUS ONE Stop: 03/13/22 21:48 Last Infusion: 03/13/22 22:22 Dose: 0 mls/hr Documented By: Admin: 03/13/22 20:55 Dose: 1,000 mls/hr Documented By: RUPERT Ibuprofen (Ibuprofen 400 Mg Tablet) 800 mg PO NOW ONE Stop: 03/13/22 19:16 Last Admin: 03/13/22 19:21 Dose: 800 mg Documented By: KERI Ondansetron HCl (Ondansetron 4 Mg/2 Ml Inj) 4 mg IV NOW PRN PRN Reason: Nausea And Vomiting Last Admin: 03/13/22 19:20 Dose: 4 mg Documented By: KERI Ondansetron HCl (Ondansetron 4 Mg Odt Prepack) 1 bottle MISC SEEINSTR ONE Stop: 03/13/22 23:27 Last Admin: 03/13/22 23:40 Dose: 1 bottle Documented By: MAY Reevaluation(s) Reevaluation #1: Patient has significant improvement in symptoms after above-stated therapies Vital Signs Vital signs: Vital Signs - 8 hr 03/13/22 19:10 03/13/22 20:33 03/13/22 19:46 Temperature 102.5 F H 99.2 F Pulse Rate 120 H 108 H Respiratory Rate 16 Blood Pressure 136/78 Pulse Oximetry 100 96 Oxygen Delivery Method Room Air 03/13/22 20:00 03/13/22 20:01 03/13/22 20:01 Temperature Pulse Rate 112 H 123 H Respiratory Rate Blood Pressure 154/99 H Pulse Oximetry 99 99 Oxygen Delivery Method Room Air 03/13/22 20:38 03/13/22 20:38 03/13/22 21:00 Temperature Pulse Rate 105 H Respiratory Rate Blood Pressure 135/81 138/82 Pulse Oximetry 99 Oxygen Delivery Method 03/13/22 21:00 03/13/22 21:30 03/13/22 22:00 Temperature Pulse Rate 102 H 100 H 103 H Respiratory Rate 17 Blood Pressure Pulse Oximetry 97 92 97 Oxygen Delivery Method 03/13/22 22:30 03/13/22 23:00 Temperature Pulse Rate 94 H 89 Respiratory Rate Blood Pressure Pulse Oximetry 95 95 Oxygen Delivery Method Room Air Room Air MDM - Male Genitourinary Lab Data Result diagrams: 03/13/22 19:30 03/13/22 19:30 Labs: Lab Results 03/13/22 03/13/22 03/13/22 Range/Units 19:30 19:30 19:30 WBC 4.2 L (4.5-11.0) X10^3/uL RBC 4.70 (4.5-5.9) X10^6/uL Hgb 14.3 (13.5-17.5) g/dL Hct 41.7 (41-53) % MCV 88.9 (80-100) fL MCH 30.5 (26-34) PG MCHC 34.3 (30-36) % RDW 13.2 (11.6-14.8) % Plt Count 210 (150-400) X10^3/uL Neut % (Auto) 66.8 (50-75) % Lymph % (Auto) 8.3 L (25-40) % Johnston % (Auto) 24.1 H (3-14) % Eos % (Auto) 0.6 L (2-4) % Baso % (Auto) 0.2 (0-2) % Neut # (Auto) 2800 (0768-2168) /uL Lymph # (Auto) 300 L (4796-6570) /uL Johnston # (Auto) 1000 H (0-900) /uL Eos # (Auto) 0 (0-450) /uL Baso # (Auto) 0 (0-100) /uL PT 12.8 H (10.1-12.7) SECONDS INR 1.1 (0.9-1.3) APTT 36 (26-36) SECONDS Sodium 130 L (137-145) mmol/L Potassium 3.6 (3.4-5.1) mmol/L Chloride 96 L (98-107) mmol/L Carbon Dioxide 25 (22-32) mmol/L BUN 11 (9-20) mg/dL Creatinine 0.84 (0.66-1.25) mg/dL Estimated GFR > 60 (>60) mL/min BUN/Creatinine Ratio 13.1 (6-22) Glucose 102 H (70-100) mg/dL Lactate (0.7-2.1) mmol/L Calcium 8.7 (8.4-10.2) mg/dL Total Bilirubin 0.7 (0.2-1.3) mg/dL AST 21 (17-59) IU/L ALT 21 (<50) IU/L Alkaline Phosphatase 93 (38-126) U/L Total Protein 7.2 (6.3-8.2) g/dL Albumin 4.4 (3.5-5.0) g/dL Globulin 2.8 (1.7-4.1) g/dL Albumin/Globulin Ratio 1.6 (1.0-2.8) Lipase 33 (23-300) U/L Procalcitonin 0.13 (<0.5) ng/mL Urine RBC (0-5/HPF) Urine WBC (0-5/HPF) Ur Squamous Epith Cells (0-5/HPF) Urine Bacteria (None) Ur Culture Indicated? SARS-CoV-2 (PCR) (Negative) Influenza A (RT-PCR) (NEGATIVE) Influenza B (RT-PCR) (NEGATIVE) RSV (PCR) (Negative) 03/13/22 03/13/22 03/13/22 Range/Units 19:30 20:40 20:53 WBC (4.5-11.0) X10^3/uL RBC (4.5-5.9) X10^6/uL Hgb (13.5-17.5) g/dL Hct (41-53) % MCV (80-100) fL MCH (26-34) PG MCHC (30-36) % RDW (11.6-14.8) % Plt Count (150-400) X10^3/uL Neut % (Auto) (50-75) % Lymph % (Auto) (25-40) % Johnston % (Auto) (3-14) % Eos % (Auto) (2-4) % Baso % (Auto) (0-2) % Neut # (Auto) (2934-7004) /uL Lymph # (Auto) (4135-1885) /uL Johnston # (Auto) (0-900) /uL Eos # (Auto) (0-450) /uL Baso # (Auto) (0-100) /uL PT (10.1-12.7) SECONDS INR (0.9-1.3) APTT (26-36) SECONDS Sodium (137-145) mmol/L Potassium (3.4-5.1) mmol/L Chloride (98-107) mmol/L Carbon Dioxide (22-32) mmol/L BUN (9-20) mg/dL Creatinine (0.66-1.25) mg/dL Estimated GFR (>60) mL/min BUN/Creatinine Ratio (6-22) Glucose (70-100) mg/dL Lactate 0.9 (0.7-2.1) mmol/L Calcium (8.4-10.2) mg/dL Total Bilirubin (0.2-1.3) mg/dL AST (17-59) IU/L ALT (<50) IU/L Alkaline Phosphatase (38-126) U/L Total Protein (6.3-8.2) g/dL Albumin (3.5-5.0) g/dL Globulin (1.7-4.1) g/dL Albumin/Globulin Ratio (1.0-2.8) Lipase (23-300) U/L Procalcitonin (<0.5) ng/mL Urine RBC 0-1/hpf D (0-5/HPF) Urine WBC 0-1/hpf (0-5/HPF) Ur Squamous Epith Cells None seen (0-5/HPF) Urine Bacteria None seen (None) Ur Culture Indicated? Cult not indicated SARS-CoV-2 (PCR) Negative (Negative) Influenza A (RT-PCR) Flu a positive H (NEGATIVE) Influenza B (RT-PCR) Flu b negative (NEGATIVE) RSV (PCR) Negative (Negative) Urine Dip Bedside Urine Glucose Negative Bedside Urine Bilirubin - Negative Bedside Urine Ketone - Negative Urine Specific Terry 1.015 Bedside Urine Occult Blood - Negative Bedside Urine pH 6.5 Bedside Urine Protein + 30 Bedside Urine Urobilinogen +/- 1mg Bedside Urine Nitrite - Negative Bedside Urine Leukocytes - Negative Esterase Imaging Data CT scan - abdomen/pelvis: Radiologist's Impression: Rai Connelly??27??M??1995 ? Allergy/Adv: No Known Drug Allergies Close Abdomen/Pelvis CT (Signed) Brandyn Thorpe - 03/13/22 Chest X-Ray (Signed) Brandyn Thorpe - 03/13/22 Foot X-Ray (Signed) Jaye Chavis - 02/21/[address] (Signed) Karlee Ortiz - 12/05/19 Abdomen/Pelvis CT (Signed) Paulette Luaghlin - 11/06/19 [place] [address] CT Scan Report Signed Patient: Rai Connelly MR#: [id number] : 1995 Acct:[id number] Age/Sex: 27 / M Date of Service: 03/13/22 Loc: ED Accession Number: [id number] ?? Procedure: CT kidney ureter bladder (KUB) Ordering Provider: Baldev Buckley D.O. PROCEDURE:? CT KIDNEY URETER BLADDER (KUB) ? INDICATIONS:? achy, low back pain, trouble urinating history of kidney stones ? TECHNIQUE:? Axial sections were acquired from the lung bases to the pubic symphysis.? Coronal and sagittal reformats were performed.? For radiation dose reduction, the following was used: ?automated exposure control, adjustment of mA and/or kV according to patient size.? ? COMPARISON:? [facility], CT, CT ABDOMEN PELVIS WO CON, 11/06/2019, 8:19. ? FINDINGS:? Image quality:? Excellent.? ? Lung bases:? There is minimal atelectasis.? ? Heart:? Heart is normal in size. ? URINARY: Right Kidney and Ureter: ? There are 4 nonobstructing right renal stones, with the largest measuring up to 0.4 cm. No hydronephrosis.? No hydroureter.? ? Left Kidney and Ureter: ? There are 2 clustered stones in the bladder in the region of the left ureterovesicular junction, with the largest stone measuring up to 0.4 cm.? There is no associated left hydronephrosis or hydroureter.? There are 5 additional nonobstructing left renal stones, with the largest measuring up to 0.4 cm. ? Bladder:? Normal wall thickness. ? ABDOMEN: Liver:? Noncontrast evaluation of the liver demonstrates no discrete? mass. Gallbladder:? Within normal limits without calcified gallstones.? ? Biliary ducts:? No biliary ductal dilatation.? ? Pancreas:? Unremarkable.? ? Spleen:? Normal in size.? ? Adrenal Glands:? No adrenal nodules.? ? ? Stomach and Bowel:? Stomach, small bowel loops, and colon are normal in caliber and wall thickness.? The appendix is normal in appearance.? Peritoneum:? No abnormal intraperitoneal fluid.? No free air.? ? Ventral Wall: ? No hernia.? Abdominal Nodes:? No retroperitoneal or mesenteric adenopathy by size criteria.? Vessels:? Aorta and inferior vena cava are normal in size.? ? PELVIS: Pelvic Organs:? Unremarkable.? ? Pelvic Nodes: No enlarged lymph nodes.? Miscellaneous: No inguinal hernias identified. ? ? ? Bones:? Visualized osseous structures demonstrate no suspicious focal lesions. IMPRESSION:? ? 1. Urinary stones in the bladder at the left ureterovesicular junction suggestive of recently passed stones.? No associated hydronephrosis or hydroureter. ? 2. Bilateral nephrolithiasis as described. ? 3. No evidence of appendicitis.? ? ? Dictated by: Brandyn Thorpe M.D. on 03/13/2022 at 22:21 ? ? MDM Narrative Medical decision making narrative: 27-year-old male smoker with history of kidney stones presents with his significant other and a chief complaint low back pain and difficulty with urination for the past few days. Multiple etiologies for patient's symptoms considered including: [Kidney stone, urine infection, influenza, COVID versus other] Patient's symptoms improved over duration of stay with above-stated therapies. Pain is well controlled, he is tolerating orals. No evidence of respiratory distress, tachypnea, hypoxemia. Findings and discharge diagnosis discussed with patient/family followed by verbalization of understanding Return precautions discussed with patient/family whom verbalize understanding. Discharge Plan Departure Patient Disposition: Home Clinical Impression: Flu Instructions: DI for Influenza -- Adult Activity Restrictions/Additional Instructions: *You have been diagnosed with influenza A. *What to do: *Please continue to take your regular medications as directed. [ ] New medication prescriptions sent to your pharmacy: [ ] [ x] New medication written as a paper prescription [ ] No new medications given *Please follow up with your primary care provider in 2-3 days, call for an appointment. Let them know you were seen in the Emergency Department and that we ask that you be seen in follow up. We will electronically transmit a record of today's note if your PCP is in our system *Return to Emergency Department if you should have any new, worsening or concerning symptoms, such as [fever greater than 101 F, shaking chills, worsening pain, persistent vomiting or other bothersome symptoms] Prescriptions: New hydrocodone-acetaminophen 5-325 mg tablet 1 tab PO Q4-6H PRN (Reason: pain) Qty: 10 0RF ketorolac 10 mg tablet 10 mg PO Q6H PRN (Reason: pain) Qty: 14 0RF oseltamivir [Tamiflu] 75 mg capsule 75 mg PO BID 5 Days Qty: 10 0RF ondansetron 4 mg tablet,disintegrating 4 mg PO TID-QID PRN (Reason: nausea and vomiting) Qty: 10 0RF No Action fluticasone propionate 16 GM spray,suspension 1 spray Intranasal BID Qty: 16 0RF amoxicillin-pot clavulanate [Augmentin] 875 MG/125 MG tablet 875 mg PO BID Qty: 20 0RF tramadol 50 mg tablet 50 mg PO BID PRN (Reason: pain) Qty: 10 0RF cephalexin [Keflex] 500 mg capsule 500 mg PO TID Qty: 15 0RF ondansetron HCl [Zofran] 4 mg tablet 4 mg PO Q6H PRN (Reason: nausea and vomiting) Qty: 12 0RF tramadol 50 mg tablet 50 mg PO Q6H PRN (Reason: pain) Qty: 12 0RF Rx Instructions: Take 1-2 tablets every 6 hours for kidney stone pain unrelieved by tylenol oxycodone 5 mg tablet 5 mg PO Q6H PRN (Reason: pain) Qty: 10 0RF Rx Instructions: Take 1-2 tablets every 6 hours for kidney stone pain unrelieved by tramadol Visit Report Forms: Patient Portal/API
[2022-03-13 21:15] LABS: Bacteria Urine None Seen; Culture Indicated Urine Cult Not Indicated; RBC Urine 0-1/HPF (0-5/HPF); Squamous Epithelial Cell Urine None Seen (0-5/HPF); WBC Urine 0-1/HPF (0-5/HPF)
[2022-03-13] MEDS: HYDROMORPHONE 0.5 MG INJ IV (21:17)
[2022-03-13 21:33] LABS: Influenza A - CEPHEID Flu A POSITIVE (NEGATIVE); Influenza B - CEPHEID Flu B NEGATIVE (NEGATIVE); Respiratory Syncytial Virus Negative (Negative)
[2022-03-13 21:54] LABS: COVID-19 CEPHEID 4-PLEX PCR Negative (Negative)
[2022-03-13] MEDS: ONDANSETRON 4 MG ODT PREPACK 1 BOTTLE MISC (23:40)
[2022-03-13] MEDS: HYDROCODONE/ACET 5/325 PREPACK 1 BOTTLE MISC (23:40)
== END 2022-03-13 23:50 | disposition home or self-care (01) ==
PROVIDERS: Emergency Provider Emergency Medicine
DX: M54.50 Low back pain, unspecified (principal); R39.198 Other difficulties with micturition; J10.1 Influenza due to other identified influenza virus with other respiratory manifestations; F17.200 Nicotine dependence, unspecified, uncomplicated
CPT/HCPCS: 0241U; 36415; 71045; 74176; 80053; 81003; 81015; 83605; 83690; 84145; 85025; 85610; 85730; 87040; 96374; 96375; 99284; 99285; J1170; J2405

== ENCOUNTER 2022-09-05 13:50 | Emergency (ER) | payer SELFPAY ==
[2022-09-05 14:00] VITALS: BP 138/80; PULSE 103; RESP 18; TEMP 36.6; O2SAT 99; BMI 23.1
[2022-09-05 15:56] LABS: Alanine Aminotransferase 38 IU/L (<50); Albumin 4.7 g/dL (3.5-5.0); Albumin Globulin Ratio 1.5 (1.0-2.8); Alkaline Phosphatase 98 U/L (38-126); Aspartate Aminotransferase 26 IU/L (17-59); BUN Creatinine Ratio 12.8 (6-22); Bilirubin Total 1.3 mg/dL (0.2-1.3); Blood Urea Nitrogen 11 mg/dL (9-20); Calcium 9.3 mg/dL (8.4-10.2); Carbon Dioxide 32 mmol/L (22-32); Chloride 100 mmol/L (98-107); Estimated Glomerular Filt Rate > 60 mL/min (>60); Globulin 3.1 g/dL (1.7-4.1); Glucose 92 mg/dL (70-100); HEMOLYSIS 29 (0-50); Lipase 57 U/L (23-300); Sodium 137 mmol/L (137-145); Total Protein 7.8 g/dL (6.3-8.2)
[2022-09-05 16:08] LABS: Add Manual Diff / Slide Review NO; Basophils Absolute Auto 0 /uL (0-100); Basophils Percent Auto 0.5 % (0-2); Eosinophils Absolute Auto 200 /uL (0-450); Eosinophils Percent Auto 2.8 % (2-4); Hematocrit 47.1 % (41-53); Hemoglobin 16.1 g/dL (13.5-17.5); Lymphocytes Absolute Auto 2200 /uL (1100-4500); Lymphocytes Percent Auto 28.2 % (25-40); Mean Corpuscular HGB Conc 34.3 % (30-36); Mean Corpuscular Hemoglobin 30.6 PG (26-34); Mean Corpuscular Volume 89.4 fL (80-100); Monocytes Absolute Auto 800 /uL (0-900); Monocytes Percent Auto 9.7 % (3-14); Neutrophils Absolute Auto 4700 /uL (1500-7000); Neutrophils Percent Auto 58.8 % (50-75); Platelet Count 289 X10^3/uL (150-400); Red Blood Cell Count 5.27 X10^6/uL (4.5-5.9); Red Cell Distribution Width 13.9 % (11.6-14.8)
[2022-09-05 17:10] VITALS: BP 147/85; PULSE 93; RESP 16; O2SAT 99
--- NOTE | 2022-09-05 18:05 | ED_ITS ---
HPI - Back Pain/Injury <AUSTIN Ponce - Last Filed: 09/05/22 18:16> General Chief Complaint: Back Pain/Injury Stated Complaint: L lower back pain/ drowsy Time Seen by Provider: 09/05/22 17:25 Source: patient History of Present Illness HPI Narrative: 27-year-old male, daily smoker, presents to the emergency department with complaints left lower back pain x2 weeks. Patient states that he was picking up box and felt a tearing sensation in left lower back. Patient also endorses urinary urgency and frequency along with dark stools. Patient has felt like he has been constipated and has discomfort and sweating with bowel movements. Patient denies any illicit drug use. Related Data Previous Rx's Medication Instructions Recorded amoxicillin 875 mg-potassium 875 mg PO BID #20 tabs 05/07/16 clavulanate 125 mg tablet (Augmentin) fluticasone propionate 50 1 spray intranasal BID ##16 05/07/16 mcg/actuation nasal spray,suspension cephalexin 500 mg capsule (Keflex) 500 mg PO TID #15 caps 11/06/19 ondansetron HCl 4 mg tablet 4 mg PO Q6H PRN nausea and 11/06/19 (Zofran) vomiting #12 tabs oxycodone 5 mg tablet 5 mg PO Q6H PRN pain #10 tabs 11/06/19 tramadol 50 mg tablet 50 mg PO Q6H PRN pain #12 tabs 11/06/19 tramadol 50 mg tablet 50 mg PO BID PRN pain #10 tabs 02/21/22 hydrocodone 5 mg-acetaminophen 325 1 tab PO Q4-6H PRN pain #10 tabs 03/13/22 mg tablet ketorolac 10 mg tablet 10 mg PO Q6H PRN pain #14 tabs 03/13/22 ondansetron 4 mg disintegrating 4 mg PO TID-QID PRN nausea and 03/13/22 tablet vomiting #10 tabs methocarbamol 500 mg tablet 500 mg PO TID PRN muscle spasm #20 09/05/22 tabs oxycodone-acetaminophen 5 mg-325 1 tab PO Q4-6H PRN pain #10 tabs 09/05/22 mg tablet (Percocet) Allergies Allergy/AdvReac Type Severity Reaction Status Date / Time No Known Drug Allergies Allergy Verified 09/05/22 14:00 Review of Systems <AUSTIN Ponce - Last Filed: 09/05/22 18:16> Review of Systems Narrative: Narrative: See HPI. GENERAL: Denies chills, fatigue, fever, sweats. HEENT: Denies sinus pain, ear pain, sore throat, difficulty swallowing, dizz iness. RESPIRATORY: Denies dyspnea, cough, wheezing, sputum. CARDIOVASCULAR: Denies chest pain, palpitations, edema. GASTROINTESTINAL: Denies nausea, vomiting, abdominal pain, diarrhea, constipation. : Denies dysuria,, incontinence, hematuria, urinary retention, flank pain, loss of control of bowel or bladder. Endorses urinary urgency and frequency. MSK: Denies weakness, joint pain, or bony pain. Endorses left-sided low back pain. SKIN: Denies rash, skin lesions, or pruritis. NEUROLOGIC: Denies weakness, dizziness, headache, numbness, confusion. Endorses mild leg numbness in the mornings if he sleeps on his back wrong. PSYCHIATRIC: No concerning psychosocial issues. Patient History <AUSTIN Ponce - Last Filed: 09/05/22 18:16> Medical History (Updated 09/05/22 @ 18:16 by AUSTIN Ponce) Sinusitis, acute Social History Smoking Status: Current every day smoker Smoking Status: Current every day smoker tobacco type: cigarettes alcohol intake frequency: 3 or more drinks per day Alcohol type: hard liquor Substance Use Type: does not use Exam <AUSTIN Ponce - Last Filed: 09/05/22 18:16> Narrative Exam Narrative: Exam Narrative: GENERAL: This is a well-nourished, well-developed patient, in no acute distress. HEAD: Atraumatic. Normocephalic. EYES: Pupils equal round and reactive. Extraocular motions intact. No scleral icterus, injection or drainage. ENT: Nose without bleeding, purulent drainage. Airway patent. CARDIOVASCULAR: Regular rate and rhythm without murmurs, peripheral pulses intact, cap refill <2 sec. RESPIRATORY: Breath sounds equal and clear bilaterally. No wheezes, rales, or rhonchi. No cough. No increased respiratory effort. No accessory muscle use. GASTROINTESTINAL: Abdomen soft, non-tender, nondistended without guarding or rebound. No suprapubic pain. No CVA tenderness. MSK: Moves all extremities. Normal range of motion, no clubbing or edema. Neurovascularly intact. NEURO: A&O x 3. SKIN: Warm, dry, no rashes or lesions noted. BACK branding machine tender but free of any obvious external abnormalities. There is no asymmetry, swelling, bruising or wound. There is no paraspinal tenderness or CVA tenderness. SI joints nontender. No pain over spinous processes. No symptoms of cauda equina such as saddle anesthesia. Sensation is grossly intact. ROM is full and without pain. SLE is negative bilaterally. Reflexes 2-3 at patella and achilles bilaterally. Resistive strengths are within normal limits Gait is normal. Heel toe balance is intact. Initial Vital Signs Initial Vital Signs: Vital Signs Temperature 97.9 F 09/05/22 14:00 Pulse Rate 103 H 09/05/22 14:00 Respiratory Rate 18 09/05/22 14:00 Blood Pressure 138/80 09/05/22 14:00 Pulse Oximetry 99 09/05/22 14:00 Oxygen Delivery Method Room Air 09/05/22 14:00 Reviewed <Gayle Guajardo DO - Last Filed: 09/06/22 07:11> Initial Vital Signs Initial Vital Signs: Vital Signs Temperature 97.9 F 09/05/22 14:00 Pulse Rate 103 H 09/05/22 14:00 Respiratory Rate 18 09/05/22 14:00 Blood Pressure 138/80 09/05/22 14:00 Pulse Oximetry 99 09/05/22 14:00 Oxygen Delivery Method Room Air 09/05/22 14:00 Course <AUSTIN Ponce - Last Filed: 09/05/22 18:16> Orders Ordered: Discontinued Medications Cyclobenzaprine HCl (Cyclobenzaprine 10 Mg Tablet) 10 mg PO NOW ONE Stop: 09/05/22 18:05 Last Admin: 09/05/22 18:12 Dose: 10 mg Documented By: AT Ketorolac Tromethamine (Ketorolac 30 Mg/Ml Vial) 30 mg IM NOW ONE Stop: 09/05/22 18:05 Last Admin: 09/05/22 18:12 Dose: 30 mg Documented By: AT Ondansetron HCl (Ondansetron 4 Mg Odt) 4 mg PO NOW PRN PRN Reason: Nausea And Vomiting Ondansetron HCl (Ondansetron 4 Mg/2 Ml Inj) 4 mg IV NOW PRN PRN Reason: Nausea And Vomiting Vital Signs Vital signs: Vital Signs - 8 hr 09/05/22 14:00 09/05/22 17:10 Temperature 97.9 F Pulse Rate 103 H 93 H Respiratory Rate 18 16 Blood Pressure 138/80 147/85 H Pulse Oximetry 99 99 Oxygen Delivery Method Room Air Room Air <Gayle Guajardo DO - Last Filed: 09/06/22 07:11> Orders Ordered: Discontinued Medications Cyclobenzaprine HCl (Cyclobenzaprine 10 Mg Tablet) 10 mg PO NOW ONE Stop: 09/05/22 18:05 Last Admin: 09/05/22 18:12 Dose: 10 mg Documented By: AT Ketorolac Tromethamine (Ketorolac 30 Mg/Ml Vial) 30 mg IM NOW ONE Stop: 09/05/22 18:05 Last Admin: 09/05/22 18:12 Dose: 30 mg Documented By: AT Ondansetron HCl (Ondansetron 4 Mg Odt) 4 mg PO NOW PRN PRN Reason: Nausea And Vomiting Ondansetron HCl (Ondansetron 4 Mg/2 Ml Inj) 4 mg IV NOW PRN PRN Reason: Nausea And Vomiting Vital Signs Vital signs: Vital Signs - 8 hr 09/05/22 14:00 09/05/22 17:10 Temperature 97.9 F Pulse Rate 103 H 93 H Respiratory Rate 18 16 Blood Pressure 138/80 147/85 H Pulse Oximetry 99 99 Oxygen Delivery Method Room Air Room Air MDM - Back Pain/Injury <AUSTIN Ponce - Last Filed: 09/05/22 18:16> Differential Diagnosis Differential diagnosis: Likely strain of lumbar region and other (constipation); Unlikely sciatica or renal colic Lab Data 09/05/22 15:40 09/05/22 15:40 Labs: Lab Results 09/05/22 09/05/22 Range/Units 15:40 15:40 WBC 8.0 (4.5-11.0) X10^3/uL RBC 5.27 (4.5-5.9) X10^6/uL Hgb 16.1 (13.5-17.5) g/dL Hct 47.1 (41-53) % MCV 89.4 (80-100) fL MCH 30.6 (26-34) PG MCHC 34.3 (30-36) % RDW 13.9 (11.6-14.8) % Plt Count 289 (150-400) X10^3/uL Neut % (Auto) 58.8 (50-75) % Lymph % (Auto) 28.2 (25-40) % [place] % (Auto) 9.7 (3-14) % Eos % (Auto) 2.8 (2-4) % Baso % (Auto) 0.5 (0-2) % Neut # (Auto) 4700 (1202-3438) /uL Lymph # (Auto) 2200 (4623-9991) /uL [place] # (Auto) 800 (0-900) /uL Eos # (Auto) 200 (0-450) /uL Baso # (Auto) 0 (0-100) /uL Sodium 137 (137-145) mmol/L Potassium 4.0 (3.4-5.1) mmol/L Chloride 100 (98-107) mmol/L Carbon Dioxide 32 (22-32) mmol/L BUN 11 (9-20) mg/dL Creatinine 0.86 (0.66-1.25) mg/dL Estimated GFR > 60 (>60) mL/min BUN/Creatinine Ratio 12.8 (6-22) Glucose 92 (70-100) mg/dL Calcium 9.3 (8.4-10.2) mg/dL Total Bilirubin 1.3 (0.2-1.3) mg/dL AST 26 (17-59) IU/L ALT 38 (<50) IU/L Alkaline Phosphatase 98 (38-126) U/L Total Protein 7.8 (6.3-8.2) g/dL Albumin 4.7 (3.5-5.0) g/dL Globulin 3.1 (1.7-4.1) g/dL Albumin/Globulin Ratio 1.5 (1.0-2.8) Lipase 57 (23-300) U/L Urine Dip Bedside Urine Glucose Negative Bedside Urine Bilirubin - Negative Bedside Urine Ketone - Negative Urine Specific [place] 1.015 Bedside Urine Occult Blood - Negative Bedside Urine pH 7.0 Bedside Urine Protein - Negative Bedside Urine Urobilinogen - Negative Bedside Urine Nitrite - Negative Bedside Urine Leukocytes - Negative Esterase MDM Narrative Medical decision making narrative: 27-year-old male that presented to the emergency department with left lower back pain. Assessment was encouraging and consistent with a left lower back strain. Will treat with a Toradol injection and a single dose of Flexeril. Guaiac was negative and labs were non concerning. I suspect patient is also experiencing constipation. Recommended increased oral hydration of at least 60 oz of water per day, addition of fiber such as Metamucil, gummy fibers, ethylene glycol, e tc.. Recommended patient follow up with his family doctor as needed. For any worsening symptoms, patient was instructed to come back to the emergency department. Patient verbalized understanding and was agreeable with course of action. <Gayle Guajardo, DO - Last Filed: 09/06/22 07:11> Lab Data Labs: Lab Results 09/05/22 09/05/22 Range/Units 15:40 15:40 WBC 8.0 (4.5-11.0) X10^3/uL RBC 5.27 (4.5-5.9) X10^6/uL Hgb 16.1 (13.5-17.5) g/dL Hct 47.1 (41-53) % MCV 89.4 (80-100) fL MCH 30.6 (26-34) PG MCHC 34.3 (30-36) % RDW 13.9 (11.6-14.8) % Plt Count 289 (150-400) X10^3/uL Neut % (Auto) 58.8 (50-75) % Lymph % (Auto) 28.2 (25-40) % [place] % (Auto) 9.7 (3-14) % Eos % (Auto) 2.8 (2-4) % Baso % (Auto) 0.5 (0-2) % Neut # (Auto) 4700 (5623-9765) /uL Lymph # (Auto) 2200 (1362-2230) /uL [place] # (Auto) 800 (0-900) /uL Eos # (Auto) 200 (0-450) /uL Baso # (Auto) 0 (0-100) /uL Sodium 137 (137-145) mmol/L Potassium 4.0 (3.4-5.1) mmol/L Chloride 100 (98-107) mmol/L Carbon Dioxide 32 (22-32) mmol/L BUN 11 (9-20) mg/dL Creatinine 0.86 (0.66-1.25) mg/dL Estimated GFR > 60 (>60) mL/min BUN/Creatinine Ratio 12.8 (6-22) Glucose 92 (70-100) mg/dL Calcium 9.3 (8.4-10.2) mg/dL Total Bilirubin 1.3 (0.2-1.3) mg/dL AST 26 (17-59) IU/L ALT 38 (<50) IU/L Alkaline Phosphatase 98 (38-126) U/L Total Protein 7.8 (6.3-8.2) g/dL Albumin 4.7 (3.5-5.0) g/dL Globulin 3.1 (1.7-4.1) g/dL Albumin/Globulin Ratio 1.5 (1.0-2.8) Lipase 57 (23-300) U/L Urine Dip Bedside Urine Glucose Negative Bedside Urine Bilirubin - Negative Bedside Urine Ketone - Negative Urine Specific [place] 1.015 Bedside Urine Occult Blood - Negative Bedside Urine pH 7.0 Bedside Urine Protein - Negative Bedside Urine Urobilinogen - Negative Bedside Urine Nitrite - Negative Bedside Urine Leukocytes - Negative Esterase Discharge Plan Departure Patient Disposition: Home Clinical Impression: Strain of lumbar region Instructions: DI for Back Strain or Sprain Activity Restrictions/Additional Instructions: *You have been diagnosed with low back strain. Your labs were all normal. We have treated 2 with a Toradol injection and a muscle relaxer, that should help with your symptoms. Starting tomorrow morning, recommend you take ibuprofen 800 mg 3 times a day with food for the next 5-7 days. I am sending in a prescription for a muscle relaxer that you can take 3 times a day for muscle spasms. For your suspected constipation, I recommend you drink at least 60 oz of water per day along with increased fiber intake that can be a fiber cereal, Metamucil, gummy fibers, etc.. A trial polyethylene glycol may help with your bowel movements. Please follow-up with your family doctor if symptoms persist. For any worsening symptoms that include loss of control of bowel or bladder, intolerable pain, chest pain or shortness of breath, please return to the emergency room immediately. *What to do: *Please continue to take your regular medications as directed. [ x] New medication prescriptions sent to your pharmacy: [[facility]] [ ] New medication written as a paper prescription [ ] No new medications given *Please follow up with your primary care provider in 2-3 days, call for an appointment. Let them know you were seen in the Emergency Department and that we ask that you be seen in follow up. We will electronically transmit a record of today's note if your PCP is in our system *If you do not have a primary care provider please contact [facility] Resource line at [phone]. They will ask some questions about your medical history and help get you set up with a doctor in the community. ? Return to ER if you should have any new, worsening or concerning symptoms, such as worsening pain, severe headache, confusion, chest pain, difficulty breathing, fever greater than 101 F, shaking chills, persistent vomiting to the point that you cannot drink fluids, or other new or worsening symptoms. Prescriptions: New methocarbamol 500 mg tablet 500 mg PO TID PRN (Reason: muscle spasm) Qty: 20 0RF oxycodone-acetaminophen [Percocet] 5-325 mg tablet 1 tab PO Q4-6H PRN (Reason: pain) Qty: 10 0RF No Action fluticasone propionate 16 GM spray,suspension 1 spray Intranasal BID Qty: 16 0RF amoxicillin-pot clavulanate [Augmentin] 875 MG/125 MG tablet 875 mg PO BID Qty: 20 0RF tramadol 50 mg tablet 50 mg PO BID PRN (Reason: pain) Qty: 10 0RF hydrocodone-acetaminophen 5-325 mg tablet 1 tab PO Q4-6H PRN (Reason: pain) Qty: 10 0RF ketorolac 10 mg tablet 10 mg PO Q6H PRN (Reason: pain) Qty: 14 0RF ondansetron 4 mg tablet,disintegrating 4 mg PO TID-QID PRN (Reason: nausea and vomiting) Qty: 10 0RF cephalexin [Keflex] 500 mg capsule 500 mg PO TID Qty: 15 0RF ondansetron HCl [Zofran] 4 mg tablet 4 mg PO Q6H PRN (Reason: nausea and vomiting) Qty: 12 0RF tramadol 50 mg tablet 50 mg PO Q6H PRN (Reason: pain) Qty: 12 0RF Rx Instructions: Take 1-2 tablets every 6 hours for kidney stone pain unrelieved by tylenol oxycodone 5 mg tablet 5 mg PO Q6H PRN (Reason: pain) Qty: 10 0RF Rx Instructions: Take 1-2 tablets every 6 hours for kidney stone pain unrelieved by tramadol Stand Alone Forms: Patient Portal/API <Gayle Guajardo DO - Last Filed: 09/06/22 07:11> Cosign ED Attending Sangature Attestation: I was immediately available in the department for consultation. Documentation has been reviewed.
[2022-09-05] MEDS: KETOROLAC 30 MG/ML VIAL IM (18:12)
[2022-09-05] MEDS: CYCLOBENZAPRINE 10 MG TABLET PO (18:12)
== END 2022-09-05 18:19 | disposition home or self-care (01) ==
PROVIDERS: Emergency Medicine; Emergency Provider Registered Nurse
DX: S39.012A Strain of muscle, fascia and tendon of lower back, initial encounter (principal); X50.9XXA Other and unspecified overexertion or strenuous movements or postures, initial encounter
CPT/HCPCS: 36415; 80053; 81003; 83690; 85025; 96372; 99283; J1885

== ENCOUNTER 2023-11-28 19:16 | Emergency (ER) | payer SELFPAY ==
[2023-11-28 19:27] VITALS: BP 148/95; PULSE 117; RESP 18; TEMP 36.6; O2SAT 98; BMI 23.5
--- NOTE | 2023-11-28 19:40 | DI.RAD.S_ITS ---
PROCEDURE: XR HAND LT MIN 3V INDICATIONS: avulsion of index, laceration to middle TECHNIQUE: 3 views of the hand(s) acquired. COMPARISON: None. FINDINGS: Bones: There is a mild amputation seen involving the distal tip of the distal phalanx of the 2nd finger. There is a remote fracture of the distal tip of the 4th finger. There is a remote, unfused ulnar styloid fracture. Soft tissues: Associated soft tissue laceration of the distal tip of the 2nd finger seen. Soft tissue injury of the distal 3rd finger. Overlying bandaging material can be seen. IMPRESSION: Mild amputation injury of the distal tip of the left 2nd finger. Soft tissue injury is seen involving the distal 2nd and 3rd fingers. Remote fracture of the distal tip of the 4th finger. Dictated by: Steve Moeller M.D. on 11/28/2023 at 19:24 Approved by: Steve Moeller M.D. on 11/28/2023 at 19:26
--- NOTE | 2023-11-28 20:35 | ED.WOUNDLAC ---
HPI - Wound/Laceration General Chief Complaint: Wound/Laceration Stated Complaint: finger laceration Time Seen by Provider: 11/28/23 19:58 Source: patient Mode of arrival: Ambulatory History of Present Illness HPI narrative: 28yoM presents for L index and middle finger injury. Fingers caught in drillbit at work. Distal tuft amputation of L index finger. 2cm laceration over distal tip of L middle finger Related Data Previous Rx's Medication Instructions Recorded amoxicillin 875 mg-potassium 875 mg PO BID #20 tabs 05/07/16 clavulanate 125 mg tablet (Augmentin) fluticasone propionate 50 1 spray intranasal BID ##16 05/07/16 mcg/actuation nasal spray,suspension cephalexin 500 mg capsule (Keflex) 500 mg PO TID #15 caps 11/06/19 ondansetron HCl 4 mg tablet 4 mg PO Q6H PRN nausea and 11/06/19 (Zofran) vomiting #12 tabs oxycodone 5 mg tablet 5 mg PO Q6H PRN pain #10 tabs 11/06/19 tramadol 50 mg tablet 50 mg PO Q6H PRN pain #12 tabs 11/06/19 tramadol 50 mg tablet 50 mg PO BID PRN pain #10 tabs 02/21/22 hydrocodone 5 mg-acetaminophen 325 1 tab PO Q4-6H PRN pain #10 tabs 03/13/22 mg tablet ketorolac 10 mg tablet 10 mg PO Q6H PRN pain #14 tabs 03/13/22 ondansetron 4 mg disintegrating 4 mg PO TID-QID PRN nausea and 03/13/22 tablet vomiting #10 tabs methocarbamol 500 mg tablet 500 mg PO TID PRN muscle spasm #20 09/05/22 tabs oxycodone-acetaminophen 5 mg-325 1 tab PO Q4-6H PRN pain #10 tabs 09/05/22 mg tablet (Percocet) amoxicillin 875 mg-potassium 1 tab PO Q12H #14 tabs 11/28/23 clavulanate 125 mg tablet hydrocodone 5 mg-acetaminophen 325 1 tab PO Q8H PRN pain #10 tabs 11/28/23 mg tablet Allergies Allergy/AdvReac Type Severity Reaction Status Date / Time No Known Drug Allergies Allergy Verified 11/28/23 19:27 Patient History Medical History (Updated 11/28/23 @ 21:39 by Maia Sheldon MD) Sinusitis, acute Social History Smoking Status: Current every day smoker Smoking Status: Current every day smoker tobacco type: cigarettes alcohol intake frequency: 3 or more drinks per day Alcohol type: hard liquor Substance Use Type: does not use Exam Initial Vital Signs Initial Vital Signs: Vital Signs Temperature 97.9 F 11/28/23 19:27 Pulse Rate 117 H 11/28/23 19:27 Respiratory Rate 18 11/28/23 19:27 Blood Pressure 148/95 H 11/28/23 19:27 Pulse Oximetry 98 11/28/23 19:27 Oxygen Delivery Method Room Air 11/28/23 19:27 Const: Awake, alert,nontoxic appearing MSK: mid-tip amputation L index finger, laceration over dorsum L middle finger. Full ROM Skin: Warm, Dry, 2cm laceration L middle finger Neuro: AO x3, CN II-XII grossly intact, moves all extremities Procedures Laceration Repair Laceration 1: Site: hand Side (If applicable): left Size (cm): 2 Description: linear Depth: simple, single layer Local Anesthetic: lidocaine 1% Amount of anesthesia used (mL): 3 Pre-repair: wound explored, irrigated extensively and deep structures intact Skin layer closed with: nylon Skin layer suture size: 4-0 Number of sutures: 6 Technique: simple, interrupted Course Orders Ordered: ED Orders 11/28/23 19:40 XR hand LT min 3V Stat Vital Signs Vital signs: Vital Signs - 8 hr 11/28/23 21:45 Pulse Rate 104 H Respiratory Rate 18 Blood Pressure 143/95 H Pulse Oximetry 97 Oxygen Delivery Method Room Air MDM - Wound/Laceration MDM Narrative Medical decision making narrative: Tuft amputation of distal left index finger. No flap amenable to suturing on index finger. Irrigated copiously by nursing staff at bedside, Xeroform gauze and bandage applied. Laceration over middle finger repaired per procedure note. Due to open fracture of finger antibiotics sent to pharmacy of choice. Pain medications sent to pharmacy Discharge Plan Departure Patient Disposition: Home Clinical Impression: Avulsion fracture of distal phalanx of finger Instructions: DI for Finger Fracture, DI for Laceration Repair -- Finger Activity Restrictions/Additional Instructions: Your sutures will need to be removed in 5-7 days. Keep your wound clean and dry. Change dressing daily. Avoid standing water or getting your hands dirty. Finish all antibiotics as prescribed even if you feel improved. Prescriptions: New amoxicillin-pot clavulanate 875-125 mg tablet 1 tab PO Q12H Qty: 14 0RF hydrocodone-acetaminophen 5-325 mg tablet 1 tab PO Q8H PRN (Reason: pain) Qty: 10 0RF No Action fluticasone propionate 16 GM spray,suspension 1 spray Intranasal BID Qty: 16 0RF amoxicillin-pot clavulanate [Augmentin] 875 MG/125 MG tablet 875 mg PO BID Qty: 20 0RF tramadol 50 mg tablet 50 mg PO BID PRN (Reason: pain) Qty: 10 0RF hydrocodone-acetaminophen 5-325 mg tablet 1 tab PO Q4-6H PRN (Reason: pain) Qty: 10 0RF ketorolac 10 mg tablet 10 mg PO Q6H PRN (Reason: pain) Qty: 14 0RF ondansetron 4 mg tablet,disintegrating 4 mg PO TID-QID PRN (Reason: nausea and vomiting) Qty: 10 0RF cephalexin [Keflex] 500 mg capsule 500 mg PO TID Qty: 15 0RF ondansetron HCl [Zofran] 4 mg tablet 4 mg PO Q6H PRN (Reason: nausea and vomiting) Qty: 12 0RF tramadol 50 mg tablet 50 mg PO Q6H PRN (Reason: pain) Qty: 12 0RF Rx Instructions: Take 1-2 tablets every 6 hours for kidney stone pain unrelieved by tylenol oxycodone 5 mg tablet 5 mg PO Q6H PRN (Reason: pain) Qty: 10 0RF Rx Instructions: Take 1-2 tablets every 6 hours for kidney stone pain unrelieved by tramadol methocarbamol 500 mg tablet 500 mg PO TID PRN (Reason: muscle spasm) Qty: 20 0RF oxycodone-acetaminophen [Percocet] 5-325 mg tablet 1 tab PO Q4-6H PRN (Reason: pain) Qty: 10 0RF Referrals: Miscellaneous,Doctor, MD [Primary Care Provider] - Stand Alone Forms: Patient Portal/API
[2023-11-28 21:45] VITALS: BP 143/95; PULSE 104; RESP 18; O2SAT 97
== END 2023-11-28 21:45 | disposition home or self-care (01) ==
PROVIDERS: Emergency Provider Emergency Medicine
DX: S62.631A Displaced fracture of distal phalanx of left index finger, initial encounter for closed fracture (principal); W26.9XXA Contact with unspecified sharp object(s), initial encounter
CPT/HCPCS: 12001; 73130; 99283

== ENCOUNTER 2024-07-30 14:23 | Inpatient (IN) | payer OTHER, SELFPAY ==
[2024-07-30] VITALS (13 sets, daily range): BP systolic 125–164; BP diastolic 77–92; PULSE 103–125; RESP 18–39; TEMP 36.6–37.2; O2SAT 96–99; BMI 23.2; BMI 23.3
--- NOTE | 2024-07-30 14:49 | DI.RAD.S_ITS ---
PROCEDURE: XR CHEST 1V INDICATIONS: suspected sepsis TECHNIQUE: One view of the chest was acquired. COMPARISON: [facility], CR, XR CHEST 1V, 03/13/2022, 19:21. FINDINGS: Surgical changes and devices: None. Lungs and pleura: Lungs are clear. No pleural effusions or pneumothorax. Mediastinum: Mediastinal contours appear normal. Heart size is normal. Bones and chest wall: No suspicious bony lesions. Overlying soft tissues appear unremarkable. IMPRESSION: No acute cardiopulmonary abnormality is seen. Approved by: Jonathan Khan M.D. on 07/30/2024 at 14:51
--- NOTE | 2024-07-30 14:56 | EKG_ITS ---
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
[2024-07-30 15:00] LABS: Add Manual Diff / Slide Review NO; Basophils Absolute Auto 0 /uL (0-100); Basophils Percent Auto 0.2 % (0-2); Eosinophils Absolute Auto 300 /uL (0-450); Eosinophils Percent Auto 1.3 % (2-4); Hematocrit 45.7 % (41-53); Hemoglobin 15.7 g/dL (13.5-17.5); Lymphocytes Absolute Auto 900 /uL (1100-4500); Lymphocytes Percent Auto 4.7 % (25-40); Mean Corpuscular HGB Conc 34.3 % (30-36); Mean Corpuscular Hemoglobin 32.4 PG (26-34); Mean Corpuscular Volume 94.7 fL (80-100); Monocytes Absolute Auto 1100 /uL (0-900); Monocytes Percent Auto 5.5 % (3-14); Neutrophils Absolute Auto 16900 /uL (1500-7000); Neutrophils Percent Auto 88.3 % (50-75); Platelet Count 191 X10^3/uL (150-400); Red Blood Cell Count 4.83 X10^6/uL (4.5-5.9); Red Cell Distribution Width 13.5 % (11.6-14.8); White Blood Cell Count 19.1 X10^3/uL (4.5-11.0)
[2024-07-30 15:01] LABS: Prothrombin Time 11.5 SECONDS (9.4-12.5)
[2024-07-30 15:03] LABS: PTT Partial Thromboplastin Tim 39 SECONDS (25.1-36.5)
[2024-07-30 15:08] LABS: Alanine Aminotransferase 122 IU/L (<50); Albumin 4.3 g/dL (3.5-5.0); Albumin Globulin Ratio 1.3 (1.0-2.8); Alkaline Phosphatase 95 U/L (38-126); Aspartate Aminotransferase 85 IU/L (17-59); Bilirubin Total 1.1 mg/dL (0.2-1.3); Blood Urea Nitrogen 19 mg/dL (9-20); Calcium 9.5 mg/dL (8.4-10.2); Carbon Dioxide 26 mmol/L (22-32); Chloride 95 mmol/L (98-107); Estimated Glomerular Filt Rate > 60 mL/min (>60); Globulin 3.2 g/dL (1.7-4.1); Glucose 104 mg/dL (70-99); HEMOLYSIS < 15 (0-50); Lactate (Lactic Acid) 1.3 mmol/L (0.7-2.1); Lipase 29 U/L (23-300); Potassium 3.7 mmol/L (3.4-5.1); Sodium 132 mmol/L (137-145); Total Protein 7.5 g/dL (6.3-8.2)
[2024-07-30 15:24] LABS: Procalcitonin 17.4 ng/mL (<0.5)
[2024-07-30] MEDS: SODIUM CHLORIDE 0.9% 1,000 ML 1000 ML IV ×2 (15:43→18:25)
[2024-07-30 17:56] LABS: Urine Volume 10mL (spun)
[2024-07-30 18:00] LABS: Bacteria Urine Occasional (0-1); RBC Urine None Seen (0-5/HPF); WBC Urine 0-1/HPF (0-5/HPF)
[2024-07-30 18:01] LABS: Culture Indicated Urine Cult Not Indicated; Squamous Epithelial Cell Urine None Seen (0-5/HPF)
--- NOTE | 2024-07-30 18:03 | ED_ITS ---
HPI - Skin/Abscess/Foreign Bdy General Chief complaint: Skin/Abscess/Foreign Body Stated complaint: sore on lt arm, went to [facility] t-3 antibiotics notwor Time Seen by Provider: 07/30/24 18:02 Source: patient Mode of arrival: Ambulatory Limitations: no limitations History of Present Illness HPI narrative: 29-year-old male with 3 days' duration of left arm pain and swelling with redness, believes he might have had a spider bite unwitnessed 3 days ago, increasing pain and swelling to his left anterior deltoid region, he picked the scab off it, it was draining, was seen at [facility] yesterday, given IM ceftriaxone dose, prescribed oral Bactrim antibiotic, increasing redness despite the antibiotics. He is able to move the shoulder and his elbow. No other injuries. No other areas of redness. Not seem to be having any allergic reaction to the antibiotics given. Related Data Previous Rx's Medication Instructions Recorded amoxicillin 875 mg-potassium 875 mg PO BID #20 tabs 05/07/16 clavulanate 125 mg tablet (Augmentin) hydrocodone 5 mg-acetaminophen 325 1 tab PO Q8H PRN pain #10 tabs 11/28/23 mg tablet Allergies Allergy/AdvReac Type Severity Reaction Status Date / Time No Known Drug Allergies Allergy Verified 11/28/23 19:27 Patient History Medical History (Updated 07/30/24 @ 18:14 by Rai Christopher MD) Sinusitis, acute Social History Smoking Status: Current every day smoker alcohol intake: current Smoking Status: Current every day smoker tobacco type: cigarettes alcohol intake frequency: 3 or more drinks per day Alcohol type: hard liquor Exam Narrative Exam Narrative: GENERAL: Well-developed patient, in mild distress. HEAD: Atraumatic. Normocephalic. EYES: Pupils equal round and reactive. Extraocular motions intact. No scleral icterus. No injection or drainage. ENT: Nose without bleeding, purulent drainage. Throat without erythema, tonsillar hypertrophy or exudate. Airway patent. NECK: Trachea midline. Non tender CARDIOVASCULAR: Fast rate regular rhythm, without murmurs, gallops, or rubs. RESPIRATORY: Clear to auscultation. Breath sounds equal bilaterally. No wheezes, rales, or rhonchi. GASTROINTESTINAL: Abdomen soft, non-tender, nondistended. EXTREMITIES: Left upper extremity anterolateral redness, deltoid region small eschar 6 mm diameter without crepitance and no expressible fluid, normal range of motion left shoulder and elbow. The redness does extend anterolaterally down past the elbow. No areas of crepitance or fluctuance. BACK: Nontender without deformity or crepitance. No flank tenderness. NEURO: AOx3. SKIN: No rash or erythema of visible areas Initial Vital Signs Initial Vital Signs: Vital Signs Temperature 99 F 07/30/24 14:28 Pulse Rate 120 H 07/30/24 14:28 Respiratory Rate 20 07/30/24 14:28 Blood Pressure 128/88 07/30/24 14:28 Pulse Oximetry 97 07/30/24 14:28 Oxygen Delivery Method Room Air 07/30/24 14:28 Course Orders Ordered: Acetaminophen (Acetaminophen 325 Mg Tablet) 650 mg PO Q6H PRN PRN Reason: Fever/Mild Pain (1-3) Hydrocodone Bitart/Acetaminophen (Hydrocodone/Acet 5/325 Tablet) 1 tab PO Q4H PRN PRN Reason: Pain, Moderate (4-6) Last Admin: 07/30/24 21:20 Dose: 1 tab Documented By: KEYONNA Hydromorphone HCl (Hydromorphone 0.5 Mg Inj) 0.5 mg IV Q2H PRN PRN Reason: Pain, Severe (7-10) Sodium Chloride (Normal Saline 0.9%) 1,000 mls @ 125 mls/hr IV CONT [facility] Last Admin: 07/30/24 19:54 Dose: 125 mls/hr Documented By: KEYONNA Ceftriaxone Sodium 2,000 mg/ (Sodium Chloride) 100 mls @ 200 mls/hr IV Q24H [facility] Last Infusion: 07/30/24 22:25 Dose: Infused Documented By: Admin: 07/30/24 21:55 Dose: 200 mls/hr Documented By: KEYONNA Vancomycin HCl 1,000 mg/ (Sodium Chloride) 250 mls @ 250 mls/hr IV Q12H [facility] Naloxone HCl (Naloxone 0.4 Mg/Ml Vial) 0.2 mg IV Q2MIN PRN PRN Reason: Opiate Reversal Ondansetron HCl (Ondansetron 4 Mg/2 Ml Inj) 4 mg IV NOW PRN PRN Reason: Nausea And Vomiting Ondansetron HCl (Ondansetron 4 Mg Odt) 4 mg SL NOW PRN PRN Reason: Nausea And Vomiting Vancomycin HCl (Vancomycin Per Pharmacy) 1 request MISC NOW PRN PRN Reason: cellulitis R arm Discontinued Medications Hydromorphone HCl (Hydromorphone 0.5 Mg Inj) 0.5 mg IV NOW ONE Stop: 07/30/24 18:27 Last Admin: 07/30/24 18:36 Dose: 0.5 mg Documented By: JESSICA Sodium Chloride (Normal Saline 0.9%) 1,000 mls @ 1,000 mls/hr IV BOLUS ONE Stop: 07/30/24 15:48 Last Infusion: 07/30/24 16:54 Dose: Infused Documented By: Admin: 07/30/24 15:43 Dose: 1,000 mls/hr Documented By: JESSICA Vancomycin HCl 2,000 mg/ (Sodium Chloride) 500 mls @ 250 mls/hr IV NOW ONE Stop: 07/30/24 18:08 Last Admin: 07/30/24 18:37 Dose: 250 mls/hr Documented By: JESSICA Ceftriaxone Sodium 1,000 mg/ (Sodium Chloride) 100 mls @ 200 mls/hr IV NOW ONE Stop: 07/30/24 18:09 Last Infusion: 07/30/24 18:36 Dose: Infused Documented By: Admin: 07/30/24 18:20 Dose: 200 mls/hr Documented By: JESSICA Sodium Chloride (Normal Saline 0.9%) 1,000 mls @ 1,000 mls/hr IV BOLUS ONE Stop: 07/30/24 19:09 Last Admin: 07/30/24 18:25 Dose: 1,000 mls/hr Documented By: JESSICA Nicotine (Nicotine 21 Mg Patch) 21 mg TOP NOW ONE Stop: 07/30/24 21:49 Last Admin: 07/30/24 22:28 Dose: 21 mg Documented By: KEYONNA Vital Signs Vital signs: Vital Signs - 8 hr 07/30/24 14:28 07/30/24 14:47 07/30/24 14:47 Temperature 99 F Pulse Rate 120 H 110 H Respiratory Rate 20 Blood Pressure 128/88 125/84 Pulse Oximetry 97 99 Oxygen Delivery Method Room Air 07/30/24 15:00 07/30/24 15:00 07/30/24 15:30 Temperature Pulse Rate 125 H 103 H Respiratory Rate 39 H 24 Blood Pressure 125/77 Pulse Oximetry 97 98 Oxygen Delivery Method 07/30/24 15:30 07/30/24 16:00 07/30/24 16:00 Temperature Pulse Rate 104 H Respiratory Rate 25 H Blood Pressure 135/85 154/81 H Pulse Oximetry 97 Oxygen Delivery Method 07/30/24 16:30 07/30/24 16:30 07/30/24 17:00 Temperature Pulse Rate 105 H 104 H Respiratory Rate 25 H 25 H Blood Pressure 160/83 H Pulse Oximetry 98 97 Oxygen Delivery Method 07/30/24 17:00 07/30/24 17:39 Temperature Pulse Rate Respiratory Rate Blood Pressure 164/84 H 154/80 H Pulse Oximetry Oxygen Delivery Method MDM - Skin/Abscess/Foreign Bdy Lab Data Attestation: I reviewed the patient's lab results. Lab results narrative: White blood cell count elevated 19,000 noted, increased procalcitonin noted, hemoglobin 15 normal. Normal police. Normal renal function. ALT slight elevation otherwise LFTs normal. Urinalysis negative. Blood cultures pending. 07/30/24 14:43 07/30/24 14:43 Labs: Lab Results 07/30/24 07/30/24 Range/Units 14:43 17:35 WBC 19.1 H (4.5-11.0) X10^3/uL RBC 4.83 (4.5-5.9) X10^6/uL Hgb 15.7 (13.5-17.5) g/dL Hct 45.7 (41-53) % MCV 94.7 (80-100) fL MCH 32.4 (26-34) PG MCHC 34.3 (30-36) % RDW 13.5 (11.6-14.8) % Plt Count 191 (150-400) X10^3/uL Neut % (Auto) 88.3 H (50-75) % Lymph % (Auto) 4.7 L (25-40) % [place] % (Auto) 5.5 (3-14) % Eos % (Auto) 1.3 L (2-4) % Baso % (Auto) 0.2 (0-2) % Neut # (Auto) 29562 H (2705-9768) /uL Lymph # (Auto) 900 L (3107-8629) /uL [place] # (Auto) 1100 H (0-900) /uL Eos # (Auto) 300 (0-450) /uL Baso # (Auto) 0 (0-100) /uL PT 11.5 (9.4-12.5) SECONDS INR 1.0 (0.9-1.3) APTT 39 H (25.1-36.5) SECONDS Sodium 132 L (137-145) mmol/L Potassium 3.7 (3.4-5.1) mmol/L Chloride 95 L (98-107) mmol/L Carbon Dioxide 26 (22-32) mmol/L BUN 19 (9-20) mg/dL Creatinine 1.36 H (0.66-1.25) mg/dL Estimated GFR > 60 (>60) mL/min BUN/Creatinine Ratio 14.0 (6-22) Glucose 104 H (70-99) mg/dL Lactate 1.3 (0.7-2.1) mmol/L Calcium 9.5 (8.4-10.2) mg/dL Total Bilirubin 1.1 (0.2-1.3) mg/dL AST 85 H (17-59) IU/L ALT 122 H (<50) IU/L Alkaline Phosphatase 95 (38-126) U/L Total Protein 7.5 (6.3-8.2) g/dL Albumin 4.3 (3.5-5.0) g/dL Globulin 3.2 (1.7-4.1) g/dL Albumin/Globulin Ratio 1.3 (1.0-2.8) Lipase 29 (23-300) U/L Procalcitonin 17.4 H (<0.5) ng/mL Urine RBC None seen (0-5/HPF) Urine WBC 0-1/hpf (0-5/HPF) Ur Squamous Epith Cells None seen (0-5/HPF) Urine Bacteria Occasional (0-1) (None) Ur Culture Indicated? Cult not indicated Vol Urine Centrifuged 10ml (spun) Urine Dip Bedside Urine Glucose Negative Bedside Urine Bilirubin - Negative Bedside Urine Ketone - Negative Urine Specific [place] 1.010 Bedside Urine Occult Blood - Negative Bedside Urine pH 7.0 Bedside Urine Protein +/- 15 Bedside Urine Urobilinogen 1+ 2mg Bedside Urine Nitrite - Negative Bedside Urine Leukocytes - Negative Esterase MDM Narrative Medical decision making narrative: 29-year-old male with increasing redness to left upper extremity after possible arthropod envenomation injury 3 days ago, on oral antibiotics after injectable ceftriaxone, failing outpatient treatment. Increasing area of redness. Sinus tachycardia and slight tachypnea noted on triage. Labs remarkable for increased white blood cell count, procalcitonin also elevated, normal lactate. IV fluids given. Blood culture sent. We will give IV vancomycin, IV ceftriaxone. Blood cultures had been sent prior. We will give additional fluid bolus. Sitter admission, patient agreeable. We will contact hospitalist. 181, Case discussed with hospitalist Dr. Gooden who accepts patient for admission. Discharge Plan Departure Patient Disposition: Admitted as Observation Clinical Impression: Cellulitis of left arm Admit Date/Time: 07/30/24 18:15 Admit Provider: Nidia Gooden
[2024-07-30] MEDS: cefTRIAXone 1,000 MG in SODIUM CHLORIDE 0.9% 100 ML 200 MG IV (18:20)
[2024-07-30] MEDS: HYDROMORPHONE 0.5 MG INJ IV (18:36)
[2024-07-30] MEDS: VANCOMYCIN 2,000 MG in SODIUM CHLORIDE 0.9% 500 ML 250 MG IV (18:37)
[2024-07-30] MEDS: SODIUM CHLORIDE 0.9% 1,000 ML 125 ML IV (19:54)
[2024-07-30] MEDS: HYDROCODONE/ACET 5/325 TABLET 1 TAB PO (21:20)
[2024-07-30] MEDS: cefTRIAXone 2,000 MG in SODIUM CHLORIDE 0.9% 100 ML 200 MG IV (21:55)
[2024-07-30] MEDS: NICOTINE 21 MG PATCH TOP (22:28)
[2024-07-31 00:03] LABS: MRSA (Nasal) PCR NOT DETECTED (Not Detect)
[2024-07-31 02:09] VITALS: BP 128/85; PULSE 97; RESP 18; TEMP 36.7; O2SAT 98
[2024-07-31] MEDS: SODIUM CHLORIDE 0.9% 1,000 ML 125 ML IV ×2 (03:36→14:08)
[2024-07-31] MEDS: HYDROMORPHONE 0.5 MG INJ IV ×3 (03:40→22:10)
--- NOTE | 2024-07-31 03:52 | P.HP_ITS ---
History of Present Illness History of Present Illness Chief complaint: sore on lt arm, went to [facility] t-3 antibiotics notwor Narrative: 29-year-old male with past medical history of tobacco abuse presents with complaint of left upper arm pain, redness and swelling. Per the patient's report, about 3 days ago, infection thought that he may have had some type in his left anterior deltoid area. Patient said initially did much better but then there was a dry scab and he was trying to pick at it. Today the patient started to have increasing redness swelling and pain in the upper arm. The patient was seen at [facility] yesterday and was given 1 dose of IM ceftriaxone and was prescribed oral Bactrim. However despite taking these medications the patient continued to have increasing redness and swelling. The patient otherwise denies any fever, chills, nausea, vomiting, diarrhea or chest pain. In the emergency room, the patient was hemodynamically stable. Labs showed a WBC of 19 a creatinine of 3 sodium 132 AST 85 ALT 122 procalcitonin of 17 chest ray shows no acute finding. The patient was given IV vancomycin and ceftriaxone and request for admission. IV fluids also given. [facility] Medical History (Updated 07/30/24 @ 18:14 by Rai Christopher MD) Sinusitis, acute Social History Smoking Status: Current every day smoker alcohol intake: current Meds Home Medications and Allergies Home Medications Medication Instructions Recorded Confirmed Type amoxicillin 875 mg-potassium 875 mg PO BID #20 tabs 05/07/16 07/30/24 Rx clavulanate 125 mg tablet (Augmentin) hydrocodone 5 mg-acetaminophen 325 1 tab PO Q8H PRN pain #10 tabs 11/28/23 07/30/24 Rx mg tablet Allergies Allergy/AdvReac Type Severity Reaction Status Date / Time No Known Drug Allergies Allergy Verified 11/28/23 19:27 Review of Systems Review of Systems ROS: Yes All systems reviewed with the patient and are negative except as otherwise documented Exam Vital Signs (past 8 hours): - 07/30/24 20:06 07/31/24 02:09 Temperature 97.9 F 98.1 F Pulse Rate 105 H 97 H Respiratory Rate 18 18 Blood Pressure 137/86 128/85 Pulse Oximetry 96 98 Oxygen Delivery Method Room Air Narrative Exam Narrative: Physical Exam: GENERAL: The patient is not in any acute distressed. Awake and alert. HEENT: Nonicteric sclerae, PERRLA, EOMI. Oropharynx clear. Moist mucous membranes. Conjunctivae appear well perfused. HEART: Regular rate and rhythm without murmurs. No lower extremities edema. LUNGS: Clear to auscultation bilaterally. No wheezing, crackles or rhonchi ABDOMEN: Soft, positive bowel sounds, nontender. SKIN: Significatn erythema noted left upper arm with some swelling. Small dry scab noted on anterior deltoid (left) no excessive bruising, petechiae, or purpura. NEUROLOGIC: AxO x 3. Cranial nerves II-XII intact without motor/sensory deficit. Objective Labs 07/30/24 14:43 07/30/24 14:43 Labs: Laboratory Results - last 24 hr 07/30/24 07/30/24 07/30/24 14:43 17:35 22:40 WBC 19.1 H RBC 4.83 Hgb 15.7 Hct 45.7 MCV 94.7 MCH 32.4 MCHC 34.3 RDW 13.5 Plt Count 191 Neut % (Auto) 88.3 H Lymph % (Auto) 4.7 L [place] % (Auto) 5.5 Eos % (Auto) 1.3 L Baso % (Auto) 0.2 Neut # (Auto) 27383 H Lymph # (Auto) 900 L [place] # (Auto) 1100 H Eos # (Auto) 300 Baso # (Auto) 0 PT 11.5 INR 1.0 APTT 39 H Sodium 132 L Potassium 3.7 Chloride 95 L Carbon Dioxide 26 BUN 19 Creatinine 1.36 H Estimated GFR > 60 BUN/Creatinine Ratio 14.0 Glucose 104 H Lactate 1.3 Calcium 9.5 Total Bilirubin 1.1 AST 85 H ALT 122 H Alkaline Phosphatase 95 Total Protein 7.5 Albumin 4.3 Globulin 3.2 Albumin/Globulin Ratio 1.3 Lipase 29 Procalcitonin 17.4 H Urine RBC None seen Urine WBC 0-1/hpf Ur Squamous Epith Cells None seen Urine Bacteria Occasional (0-1) Ur Culture Indicated? Cult not indicated Vol Urine Centrifuged 10ml (spun) Nasal Screen MRSA (PCR) Not detected Assessment & Plan Assessment & Plan narrative: Left upper arm cellulitis secondary to possible spider bite. Met the patient to medical inpatient. The patient is hemodynamically stable outside of continue IV vancomycin and ceftriaxone. Monitor for sepsis. No clinical signs of abscess at this time. IVCK. IV fluid. Creatinine 1.3. Baseline 0.8. Likely from dehydration. Monitor renal function. Tobacco abuse. Patient counseled nicotine patch. DVT prophylaxis SCDs and ambulation. CODE STATUS full code. Disposition likely home in 2 days. - As the provider of this telehealth evaluation, requested by the patient's evaluating physician, I attest that I introduced myself to the patient, provided my credentials and determined that telemedicine via a real-time, 2 way interactive audio and video platform is an appropriate and effective means of providing this service. - I reviewed the patient's chart and had a discussion with the member of the patient's treatment team. - The patient and I mutually agreed with continuation of this evaluation via telemedicine. The patient consented for the telemedicine evaluation. - This virtual encounter was taken place from [place]. The encounter was approximately 35 minutes. The nurse was present during the entire time of the encounter and was able to move the stethoscope in appropriate directions. The patient was evaluated at [facility]. Time-Based Coding :: [TOTAL MINUTES] spent with patient and on the chart (including review of chart, obtaining history, exam, reviewing outside data, placing orders, documenting exam and treatment plan, and counseling patient) on [DATE]. Quality VTE Deep Vein Thrombosis/Pulmonary Embolism Present on Admission: No
[2024-07-31] MEDS: VANCOMYCIN 1,000 MG in SODIUM CHLORIDE 0.9% 250 ML 250 MG IV ×3 (05:18→22:10)
[2024-07-31 05:22] LABS: Add Manual Diff / Slide Review NO; Basophils Absolute Auto 0 /uL (0-100); Basophils Percent Auto 0.2 % (0-2); Eosinophils Absolute Auto 400 /uL (0-450); Eosinophils Percent Auto 3.8 % (2-4); Hematocrit 39.3 % (41-53); Hemoglobin 13.3 g/dL (13.5-17.5); Lymphocytes Absolute Auto 900 /uL (1100-4500); Lymphocytes Percent Auto 8.2 % (25-40); Mean Corpuscular HGB Conc 33.9 % (30-36); Mean Corpuscular Hemoglobin 32.3 PG (26-34); Mean Corpuscular Volume 95.2 fL (80-100); Monocytes Absolute Auto 1000 /uL (0-900); Monocytes Percent Auto 8.5 % (3-14); Neutrophils Absolute Auto 9000 /uL (1500-7000); Neutrophils Percent Auto 79.3 % (50-75); Platelet Count 192 X10^3/uL (150-400); Red Blood Cell Count 4.13 X10^6/uL (4.5-5.9); Red Cell Distribution Width 13.3 % (11.6-14.8); White Blood Cell Count 11.4 X10^3/uL (4.5-11.0)
[2024-07-31 05:45] LABS: Alanine Aminotransferase 87 IU/L (<50); Albumin 3.2 g/dL (3.5-5.0); Albumin Globulin Ratio 1.2 (1.0-2.8); Alkaline Phosphatase 85 U/L (38-126); Aspartate Aminotransferase 68 IU/L (17-59); BUN Creatinine Ratio 13.3 (6-22); Bilirubin Total 0.6 mg/dL (0.2-1.3); Blood Urea Nitrogen 15 mg/dL (9-20); Calcium 8.5 mg/dL (8.4-10.2); Carbon Dioxide 27 mmol/L (22-32); Chloride 102 mmol/L (98-107); Estimated Glomerular Filt Rate > 60 mL/min (>60); Globulin 2.7 g/dL (1.7-4.1); Glucose 92 mg/dL (70-99); HEMOLYSIS < 15 (0-50); Potassium 3.6 mmol/L (3.4-5.1); Sodium 134 mmol/L (137-145); Total Protein 5.9 g/dL (6.3-8.2)
[2024-07-31 08:00] VITALS: BP 154/109; PULSE 93; RESP 17; TEMP 36; O2SAT 100
[2024-07-31] MEDS: NICOTINE 21 MG PATCH TOP (08:51)
--- NOTE | 2024-07-31 11:04 | DI.CT.S_ITS ---
PROCEDURE: CT UE LT W CON INDICATIONS: LUE cellulitis, not responding, r/o abscess TECHNIQUE: After the administration of intravenous contrast, 2 mm axial sections acquired of the left upper extremity, with coronal and sagittal reformats. For radiation dose reduction, the following was used: automated exposure control, adjustment of mA and/or kV according to patient size. COMPARISON: None. FINDINGS: Image quality: Excellent. Bones: No acute osseous fracture or dislocation. No significant arthritic changes. No osseous erosions to suggest osteomyelitis. Old healed left-sided rib fractures are present. Soft tissues: Subcutaneous edema is seen in the distal portion of the upper arm and within the proximal forearm. A large area of confluent edema is seen overlying the olecranon. No peripherally enhancing abscess is seen. No definite intermuscular fascial edema. No soft tissue gas. No elbow effusion. Small axillary and supraclavicular lymph nodes are likely reactive. Included portions of the left chest and abdomen demonstrate no acute abnormality. IMPRESSION: Nonspecific subcutaneous edema above and below the elbow most prominent over the olecranon. No drainable abscess is seen. No soft tissue gas. No signs of fasciitis or osteomyelitis. Approved by: Randolph Ferrara M.D. on 07/31/2024 at 11:53
--- NOTE | 2024-07-31 12:03 | PC.NURSE ---
Patients left arm is red from armpit to elbow. He states that is looks better today and less swollen. He says area itches at times, he does have a puncture wound to arm. Just given iv dilaudid for complaints of discomfort of 8/10. Patient also given a nicotine patch as he smokes about 1 pack of cigarettes a day. He his back from his procedure and resting comfortably.
--- NOTE | 2024-07-31 12:59 | PM.PN.1 ---
Subjective Subjective Interval history: 29 M admitted with a LUE cellulitis. Continues to have pain today, improved with pain medications. Ordered CT today which was without abscess or joint effusions. Exam Vital Signs (past 8 hours): - 07/31/24 08:00 Temperature 96.8 F L Pulse Rate 93 H Respiratory Rate 17 Blood Pressure 154/109 H Pulse Oximetry 100 Oxygen Flow Rate 0 Oxygen Delivery Method Room Air Oxygen Flow Rate 0 Narrative Exam Narrative: Physical Exam: GENERAL: The patient is not in any acute distressed. Awake and alert. HEENT: Nonicteric sclerae, PERRLA, EOMI. Oropharynx clear. Moist mucous membranes. Conjunctivae appear well perfused. HEART: Regular rate and rhythm without murmurs. No lower extremities edema. LUNGS: Clear to auscultation bilaterally. No wheezing, crackles or rhonchi ABDOMEN: Soft, positive bowel sounds, nontender. SKIN: Significatn erythema noted left upper arm with some swelling. Small dry scab noted on anterior deltoid (left) no excessive bruising, petechiae, or purpura. NEUROLOGIC: AxO x 3. Cranial nerves II-XII intact without motor/sensory deficit. Objective Labs 07/31/24 04:50 07/31/24 04:50 Labs: Laboratory Results - last 24 hr 07/30/24 07/30/24 07/30/24 14:43 17:35 22:40 WBC 19.1 H RBC 4.83 Hgb 15.7 Hct 45.7 MCV 94.7 MCH 32.4 MCHC 34.3 RDW 13.5 Plt Count 191 Neut % (Auto) 88.3 H Lymph % (Auto) 4.7 L [place] % (Auto) 5.5 Eos % (Auto) 1.3 L Baso % (Auto) 0.2 Neut # (Auto) 91528 H Lymph # (Auto) 900 L [place] # (Auto) 1100 H Eos # (Auto) 300 Baso # (Auto) 0 PT 11.5 INR 1.0 APTT 39 H Sodium 132 L Potassium 3.7 Chloride 95 L Carbon Dioxide 26 BUN 19 Creatinine 1.36 H Estimated GFR > 60 BUN/Creatinine Ratio 14.0 Glucose 104 H Lactate 1.3 Calcium 9.5 Total Bilirubin 1.1 AST 85 H ALT 122 H Alkaline Phosphatase 95 Total Protein 7.5 Albumin 4.3 Globulin 3.2 Albumin/Globulin Ratio 1.3 Lipase 29 Procalcitonin 17.4 H Urine RBC None seen Urine WBC 0-1/hpf Ur Squamous Epith Cells None seen Urine Bacteria Occasional (0-1) Ur Culture Indicated? Cult not indicated Vol Urine Centrifuged 10ml (spun) Nasal Screen MRSA (PCR) Not detected 07/31/24 04:50 WBC 11.4 H RBC 4.13 L Hgb 13.3 L Hct 39.3 L MCV 95.2 MCH 32.3 MCHC 33.9 RDW 13.3 Plt Count 192 Neut % (Auto) 79.3 H Lymph % (Auto) 8.2 L [place] % (Auto) 8.5 Eos % (Auto) 3.8 Baso % (Auto) 0.2 Neut # (Auto) 9000 H Lymph # (Auto) 900 L [place] # (Auto) 1000 H Eos # (Auto) 400 Baso # (Auto) 0 PT INR APTT Sodium 134 L Potassium 3.6 Chloride 102 Carbon Dioxide 27 BUN 15 Creatinine 1.13 Estimated GFR > 60 BUN/Creatinine Ratio 13.3 Glucose 92 Lactate Calcium 8.5 Total Bilirubin 0.6 AST 68 H ALT 87 H Alkaline Phosphatase 85 Total Protein 5.9 L Albumin 3.2 L Globulin 2.7 Albumin/Globulin Ratio 1.2 Lipase Procalcitonin Urine RBC Urine WBC Ur Squamous Epith Cells Urine Bacteria Ur Culture Indicated? Vol Urine Centrifuged Nasal Screen MRSA (PCR) [facility] Medical History (Updated 07/30/24 @ 18:14 by Rai Christopher MD) Sinusitis, acute Social History Smoking Status: Current every day smoker alcohol intake: current Assessment & Plan Assessment & Plan narrative: Left upper arm cellulitis secondary to possible spider bite. - CT done today to evaluate for abscess, not seen. Does traverse the elbow but normal ROM today. - consider orthopedics consultation if no improvement - continue ceftriaxone and vancomycin. VICK. IV fluid. Creatinine 1.3. Baseline 0.8. Likely from dehydration. Monitor renal function. Tobacco abuse. - nicotine patch increased to 21 mg patch from 7 ordered overnight. DVT prophylaxis SCDs and ambulation. CODE STATUS full code. Disposition likely home in 2 days. Time-Based Coding :: [TOTAL MINUTES] spent with patient and on the chart (including review of chart, obtaining history, exam, reviewing outside data, placing orders, documenting exam and treatment plan, and counseling patient) on [DATE]. Quality VTE Deep Vein Thrombosis/Pulmonary Embolism Present on Admission: No
--- NOTE | 2024-07-31 14:51 | CM.DANOTE ---
B DCP Assessment Note pt is a 29yo M admitted with L arm cellulites. failed OP PO tx, admitted for a few days with IV abx PCP none listed Payer [employer] healthy options GED TUTOR reviewed EMR per provider, here for approx 2 days for IV abx. per ED doc, pt claims got spider bite in arm leading to infection. no tox screen this admission per chart. GED TUTOR attempted to meet with pt x3, either out of room for CT or sleeping heavily, allowed to rest. Per chart, pt lives alone in [place]. indep. works for [employer] in [place]. (may need work excuse note?). P: anticipate return home when medically stable. CM will f/u on PCP/work letter/transport home/additional DCP needs/concerns. DARIAN Yin Discharge Planning/Care Management CM Discharge Assessment Start: 07/31/24 14:49 Freq: Status: Active Protocol: Document 07/31/24 14:49 SL (Rec: 07/31/24 14:51 SL Desktop) Discharge Planning Assessment Assigned Online Activist DARIAN Tolentino DPOA/Assigned Designee Name Kayla, grandmother ([place]) Contact Information [phone] Advance Directives? No History Provided By Patient Prior Living Arrangements House Type of transporation used prior to Drives own vehicle admit Independent with ADL's Yes Is patient alert and oriented? Yes Barriers to Discharge No Discharge Plan Home Referrals Initiated None needed Whiteboard Updated in Patient Room with No name and ext. # of Online Activist Review Status In Process Please Provide Date Initial DC 07/31/24 Assessment Was Performed Next Review Type Continued Stay Review
[2024-07-31 15:59] VITALS: BP 146/105; PULSE 94; RESP 15; TEMP 35.9; O2SAT 100
[2024-07-31] MEDS: HYDROCODONE/ACET 5/325 TABLET 1 TAB PO (18:14)
[2024-07-31] MEDS: cefTRIAXone 2,000 MG in SODIUM CHLORIDE 0.9% 100 ML 200 MG IV (19:38)
[2024-07-31 20:14] VITALS: BP 137/94; PULSE 89; RESP 18; TEMP 36.1; O2SAT 100
[2024-08-01] MEDS: HYDROMORPHONE 0.5 MG INJ IV ×5 (01:13→22:05)
[2024-08-01] MEDS: SODIUM CHLORIDE 0.9% 1,000 ML 125 ML IV ×2 (02:34→12:19)
[2024-08-01 06:21] LABS: Vancomycin Trough 9.8 ug/mL (10-20)
[2024-08-01 07:52] LABS: Add Manual Diff / Slide Review NO; Basophils Absolute Auto 0 /uL (0-100); Basophils Percent Auto 0.4 % (0-2); Eosinophils Absolute Auto 700 /uL (0-450); Eosinophils Percent Auto 7.3 % (2-4); Hematocrit 43.7 % (41-53); Hemoglobin 15.3 g/dL (13.5-17.5); Lymphocytes Absolute Auto 1100 /uL (1100-4500); Lymphocytes Percent Auto 11.3 % (25-40); Mean Corpuscular Volume 94.4 fL (80-100); Monocytes Absolute Auto 1200 /uL (0-900); Monocytes Percent Auto 12.5 % (3-14); Neutrophils Absolute Auto 6500 /uL (1500-7000); Neutrophils Percent Auto 68.5 % (50-75); Platelet Count 219 X10^3/uL (150-400); Red Blood Cell Count 4.62 X10^6/uL (4.5-5.9); Red Cell Distribution Width 13.3 % (11.6-14.8); White Blood Cell Count 9.4 X10^3/uL (4.5-11.0)
[2024-08-01] MEDS: VANCOMYCIN TROUGH 1 REQUEST MISC (08:03)
[2024-08-01] MEDS: VANCOMYCIN 1,000 MG in SODIUM CHLORIDE 0.9% 250 ML 250 MG IV ×3 (08:03→21:22)
[2024-08-01 08:04] LABS: BUN Creatinine Ratio 13.3 (6-22); Blood Urea Nitrogen 11 mg/dL (9-20); Calcium 8.9 mg/dL (8.4-10.2); Carbon Dioxide 26 mmol/L (22-32); Chloride 103 mmol/L (98-107); Estimated Glomerular Filt Rate > 60 mL/min (>60); Glucose 105 mg/dL (70-99); HEMOLYSIS 43 (0-50); Potassium 4.2 mmol/L (3.4-5.1); Sodium 137 mmol/L (137-145)
[2024-08-01 08:47] VITALS: BP 121/86; PULSE 83; RESP 16; TEMP 36.1; O2SAT 98
[2024-08-01] MEDS: NICOTINE 21 MG PATCH TOP (09:13)
--- NOTE | 2024-08-01 09:52 | PC.NURSE ---
Patients l.arm is less swollen today and color is pink, he has a black corine from something puncturing him and dried skin from l.arm decreasing in size. He denied pain this morning. He has ivf infusing and he is tolerating this well. Nicotine patch placed on patients r.shoulder. Vancomycin infused.
[2024-08-01 12:00] VITALS: BP 138/99; PULSE 77; RESP 16; TEMP 35.7; O2SAT 100
--- NOTE | 2024-08-01 12:11 | CM.DPNOTE ---
DCP note PROSTHETIC ASSISTANT reviewed EMR per provider in morning rounds, dc either today vs tomorrow pending status of pt's arm cellulites. may need another day of IV abx. PROSTHETIC ASSISTANT entered room and introduced self and role. pt resting in bed. pt lives in [place] with partner/kids. currently does not work. A/O/drives. no PCP hx, eager and interested in PCP. PROSTHETIC ASSISTANT provided information to schedule new appt here with providers. pt plans to call to schedule SOC/hospital f/u appt. has a ride home. denies other CM/DCP/PROSTHETIC ASSISTANT needs or questions at this time. P: anticipate dc home with new PCP OP f/u, either later this afternoon vs tomorrow 08/02. no identified barriers to safe dc home at this time, will continue to follow as needed DARIAN Yin
--- NOTE | 2024-08-01 14:18 | PM.PN.1 ---
Subjective Subjective Interval history: 29 M admitted with a LUE cellulitis. Continues to have pain today, but it is improving overall. Exam Vital Signs (past 8 hours): - 08/01/24 08:47 08/01/24 12:00 Temperature 96.9 F L 96.3 F L Pulse Rate 83 77 Respiratory Rate 16 16 Blood Pressure 121/86 138/99 H Pulse Oximetry 98 100 Oxygen Flow Rate 0 0 Oxygen Delivery Method Room Air Oxygen Flow Rate 0 Narrative Exam Narrative: Physical Exam: GENERAL: The patient is not in any acute distressed. Awake and alert. HEENT: Nonicteric sclerae, PERRLA, EOMI. Oropharynx clear. Moist mucous membranes. Conjunctivae appear well perfused. HEART: Regular rate and rhythm without murmurs. No lower extremities edema. LUNGS: Clear to auscultation bilaterally. No wheezing, crackles or rhonchi ABDOMEN: Soft, positive bowel sounds, nontender. SKIN: Significatn erythema noted left upper arm with some swelling. Small dry scab noted on anterior deltoid (left) no excessive bruising, petechiae, or purpura. NEUROLOGIC: AxO x 3. Cranial nerves II-XII intact without motor/sensory deficit. Objective Labs 08/01/24 07:39 08/01/24 07:39 Labs: Laboratory Results - last 24 hr 08/01/24 08/01/24 05:35 07:39 WBC 9.4 RBC 4.62 Hgb 15.3 Hct 43.7 MCV 94.4 MCH 33.0 MCHC 35.0 RDW 13.3 Plt Count 219 Neut % (Auto) 68.5 Lymph % (Auto) 11.3 L Gray % (Auto) 12.5 Eos % (Auto) 7.3 H Baso % (Auto) 0.4 Neut # (Auto) 6500 Lymph # (Auto) 1100 Gray # (Auto) 1200 H Eos # (Auto) 700 H Baso # (Auto) 0 Sodium 137 Potassium 4.2 Chloride 103 Carbon Dioxide 26 BUN 11 Creatinine 0.83 Estimated GFR > 60 BUN/Creatinine Ratio 13.3 Glucose 105 H Calcium 8.9 Vancomycin Trough 9.8 L [facility] Medical History (Updated 07/30/24 @ 18:14 by Rai Christopher MD) Sinusitis, acute Social History Smoking Status: Current every day smoker alcohol intake: current Assessment & Plan Assessment & Plan narrative: Left upper arm cellulitis secondary to possible spider bite. - CT done 07/31 to evaluate for abscess, not seen. Does traverse the elbow but normal ROM today and improving in rash today. - consider orthopedics consultation if no improvement - continue ceftriaxone and vancomycin. VICK, POA, improved. - continued IV fluid, now stopped today. Creatinine 1.3 now back to Baseline 0.8. Likely from dehydration. Monitor renal function. Tobacco abuse. - nicotine patch increased to 21 mg patch from 7 ordered overnight. DVT prophylaxis SCDs and ambulation. CODE STATUS full code. Disposition likely home tomorrow if continued improvement with IV antibiotics. Time-Based Coding :: [TOTAL MINUTES] spent with patient and on the chart (including review of chart, obtaining history, exam, reviewing outside data, placing orders, documenting exam and treatment plan, and counseling patient) on [DATE]. Quality VTE Deep Vein Thrombosis/Pulmonary Embolism Present on Admission: No
[2024-08-01] MEDS: cefTRIAXone 2,000 MG in SODIUM CHLORIDE 0.9% 100 ML 200 MG IV (19:51)
[2024-08-01 20:00] VITALS: BP 120/99; PULSE 94; RESP 17; TEMP 35.8; O2SAT 98
[2024-08-01] MEDS: HYDROCODONE/ACET 5/325 TABLET 1 TAB PO (20:24)
[2024-08-02] MEDS: VANCOMYCIN 1,000 MG in SODIUM CHLORIDE 0.9% 250 ML 250 MG IV ×2 (02:26→08:42)
[2024-08-02] MEDS: HYDROMORPHONE 0.5 MG INJ IV ×3 (04:27→10:37)
[2024-08-02 07:00] VITALS: BP 136/98; PULSE 85; RESP 16; TEMP 36.2; O2SAT 97
[2024-08-02] MEDS: VANCOMYCIN TROUGH 1 REQUEST MISC (07:30)
[2024-08-02] MEDS: NICOTINE 21 MG PATCH TOP (09:00)
--- NOTE | 2024-08-02 09:09 | P.DS_ITS ---
History of Present Illness History of Present Illness Date Patient Seen: 08/02/24 Time Patient Seen: 09:10 Chief complaint: sore on lt arm, went to [facility] t-3 antibiotics notwor Narrative: Per admitting provider, 29-year-old male with past medical history of tobacco abuse presents with complaint of left upper arm pain, redness and swelling. Per the patient's report, about 3 days ago, infection thought that he may have had some type in his left anterior deltoid area. Patient said initially did much better but then there was a dry scab and he was trying to pick at it. Today the patient started to have increasing redness swelling and pain in the upper arm. The patient was seen at [facility] yesterday and was given 1 dose of IM ceftriaxone and was prescribed oral Bactrim. However despite taking these medications the patient continued to have increasing redness and swelling. The patient otherwise denies any fever, chills, nausea, vomiting, diarrhea or chest pain. In the emergency room, the patient was hemodynamically stable. Labs showed a WBC of 19 a creatinine of 3 sodium 132 AST 85 ALT 122 procalcitonin of 17 chest ray shows no acute finding. The patient was given IV vancomycin and ceftriaxone and request for admission. IV fluids also given. Discharge Providers Provider Date of admission: 07/30/24 18:15 Discharge Date: 08/02/24 Primary care physician: Doctor Annette MD Discharge provider: Jose Cruz Ibarra DO Summary Hospital Course Discharge Diagnosis: Left upper arm cellulitis secondary to possible spider bite. VICK, POA, improved. Tobacco abuse. Hospital Course: This is a 29 year old male with PMH of tobacco use who was admitted with left upper arm cellulitis after an unknown bug bite, possibly a spider, to the left arm and VICK. VICK improved with fluids. His left arm cellulitis was slow to improve. CT was done with lack of progression on 07/31 but did not reveal any abscess. After a few more days his erythema began to regress and his pain lessened. Given improvement on IV antibiotics on ceftriaxone and vancomycin, he was discharged on cefdinir and doxycycline for another 10 days after discharge along with a few days of pain medication. Time Spent with Patient Time spent: Less than 30 minutes Exam Vital Signs (past 8 hours): Oxygen Delivery Method Room Air Oxygen Flow Rate 0 Narrative Exam Narrative: Physical Exam: GENERAL: The patient is not in any acute distressed. Awake and alert. HEENT: Nonicteric sclerae, PERRLA, EOMI. Oropharynx clear. Moist mucous membranes. Conjunctivae appear well perfused. HEART: Regular rate and rhythm without murmurs. No lower extremities edema. LUNGS: Clear to auscultation bilaterally. No wheezing, crackles or rhonchi ABDOMEN: Soft, positive bowel sounds, nontender. SKIN: Improving erythema in forearm, nearly disappeared. Small dry scab noted on anterior deltoid (left) no excessive bruising, petechiae, or purpura. Around this is an area of erythema which has slightly regressed today as well. NEUROLOGIC: AxO x 3. Cranial nerves II-XII intact without motor/sensory deficit. Objective Labs 08/01/24 07:39 08/01/24 07:39 Labs: Laboratory Results - last 24 hr 08/02/24 07:22 Vancomycin Trough 19.0 PFSH Medical History (Updated 07/30/24 @ 18:14 by Rai Christopher MD) Sinusitis, acute Social History Smoking Status: Current every day smoker alcohol intake: current Discharge Plan Discharge Plan Patient Disposition: Home Provider Discharge Comment: You were admitted to the hospital with a left arm infection / cellulitis, improved with antitbiotics. Continue antibiotics at home for 10 days, a few days of pain medication was sent to your pharmacy as well in case of pain. Discharge orders & Medications Prescriptions: New cefdinir 300 mg capsule 300 mg PO BID 10 Days Qty: 20 0RF doxycycline hyclate 100 mg tablet 100 mg PO BID 10 Days Qty: 20 0RF Continued hydrocodone-acetaminophen 5-325 mg tablet 1 tab PO Q8H PRN (Reason: pain) 7 Days Qty: 10 0RF Discontinued amoxicillin-pot clavulanate [Augmentin] 875 MG/125 MG tablet 875 mg PO BID Qty: 20 0RF Follow up/Referrals: Doctor Bryant MD [Primary Care Provider] - Diet/Activity/Treatments Diet: Diet as Tolerated and Regular Activity: As tolerated, no restrictions. Visit Report/Discharge Packet Stand Alone Forms: Patient Portal/API, Stroke Signs & Symptoms Discharge Data Primary Care Provider: Doctor Annette Quality VTE Deep Vein Thrombosis/Pulmonary Embolism Present on Admission: No
[2024-08-02] MEDS: HYDROCODONE/ACET 5/325 TABLET 1 TAB PO (11:12)
--- NOTE | 2024-08-02 11:29 | PC.NURSE ---
Day shift: Discharge instructions gone over with patient by ROSA Leiva V. All questions answered, patient stated understanding. Abbie removed PIV prior to discharge. All belongings with patient. This RN escorted patient to main entrance where patient has a ride picking him up.
== END 2024-08-02 11:31 | disposition home or self-care (01) | DRG 383 ==
LOC: ED 18:14 → AC 07-31 08:39
PROVIDERS: Emergency Medicine; Internal Medicine; Admitting Provider Family Medicine; Emergency Provider Emergency Medicine; Referring Provider Emergency Medicine; Visit Provider Family Medicine
DX: L03.114 Cellulitis of left upper limb (principal); T63.301A Toxic effect of unspecified spider venom, accidental (unintentional), initial encounter; F17.210 Nicotine dependence, cigarettes, uncomplicated; N17.9 Acute kidney failure, unspecified
CPT/HCPCS: 36415; 71045; 73201; 80048; 80053; 80202; 81003; 81015; 83605; 83690; 84145; 85025; 85610; 85730; 87040; 87797; 93005; 96361; 96365; 96375; 99284; J0696; J1171; Q9967

== ENCOUNTER 2024-10-11 21:47 | Emergency (ER) | payer OTHER, SELFPAY ==
[2024-07-30 20:00] VITALS: BMI 23.3
[2024-10-11] VITALS (8 sets, daily range): BP systolic 131–148; BP diastolic 77–93; PULSE 102–118; RESP 19; TEMP 36.9; O2SAT 95–100; BMI 23.5
--- NOTE | 2024-10-11 21:58 | DI.RAD.S_ITS ---
PROCEDURE: XR CHEST 1V INDICATIONS: fever and chills TECHNIQUE: One view of the chest was acquired. COMPARISON: [facility], CR, XR CHEST 1V, 07/30/2024, 14:54. FINDINGS: Surgical changes and devices: None. Lungs and pleura: Lungs are clear. No pleural effusions or pneumothorax. Mediastinum: Mediastinal contours appear normal. Heart size is normal. Bones and chest wall: No suspicious bony lesions. Overlying soft tissues appear unremarkable. IMPRESSION: No acute pulmonary process. Dictated by: Jaye Chavis M.D. on 10/11/2024 at 22:45 Approved by: Jaye Chavis M.D. on 10/11/2024 at 22:45
--- NOTE | 2024-10-11 21:58 | DI.CT.S_ITS ---
PROCEDURE: CT SINUS W CON INDICATIONS: sinus pain, sepsis TECHNIQUE: After the administration of intravenous contrast, 3.0 mm axial images acquired from the frontal sinuses to the mid-sella, with coronal and sagittal reformats. For radiation dose reduction, the following was used: automated exposure control, adjustment of mA and/or kV according to patient size. COMPARISON: None. FINDINGS: Image quality: Excellent. Sinuses: There is overall appearance moderate pansinus mucosal thickening. No fluid levels. Ostiomeatal Complexes: There is occlusion right and mild narrowing on secondary to mucosal. Miscellaneous: Visualized intra-orbital contents are normal. No jennifer bullosa. Rightward nasal septal deviation. Paradoxical IMPRESSION: Moderate pansinus mucosal thickening consistent with sinus disease as above. No fluid levels. Dictated by: Jaye Chavis M.D. on 10/11/2024 at 22:30 Approved by: Jaye Chavis M.D. on 10/11/2024 at 22:45
--- NOTE | 2024-10-11 22:02 | ED.GENADULT ---
HPI - General Adult General Chief complaint: Nasal Problem Stated complaint: Facial Pain/ Swelling,Fever Time Seen by Provider: 10/11/24 21:50 History of Present Illness HPI narrative: 29-year-old gentleman history of tobacco abuse, admitted to the hospital for a left upper extremity cellulitis in July of this year presents with fevers, chills, tachycardia, significant facial pain with nose redness and purulent discharge along with bloating and abdominal discomfort acutely starting earlier today. He states that he had what he thought was a mild viral illness seemed to be improving until today. The facial pain and pressure has been worsening throughout the day, he notes that in the late afternoon he went to blow his nose and had significant purulent bloody discharge in what look like a nasal polyp they came out in the debris he was blowing. He is not complaining of severe dyspnea currently has not taken any medications at this time for pain or fever. Related Data Home Medications ?Medication ?Instructions ?Recorded ?Confirmed No Known Home Medications 10/12/24 10/12/24 Allergies Allergy/AdvReac Type Severity Reaction Status Date / Time No Known Drug Allergies Allergy Verified 10/11/24 22:02 Review of Systems Review of Systems Narrative: Pertinent positive and negative findings as per HPI Patient History Medical History (Updated 10/12/24 @ 01:32 by Shanel Zaragoza MD) Sinusitis, acute Social History alcohol intake: current tobacco type: cigarettes alcohol intake frequency: 3 or more drinks per day Alcohol type: hard liquor Exam Initial Vital Signs Initial Vital Signs: Vital Signs Pulse Rate 115 H 10/11/24 21:59 Pulse Oximetry 98 10/11/24 21:59 General: Healthy appearing, appears to be in pain but Able to give a complete and coherent history. Well-nourished well-developed HEENT: Moist mucous membranes, nose is erythematous, he has tenderness over both maxillary and frontal sinuses. Sclera are injected bilaterally Significant cervical adenopathy bilaterally. Minimal pharyngeal erythema without exudate no peritonsillar abscess Respiratory: Lungs are clear to auscultation, no wheezing no rales no rhonchi. Full and symmetrical air movement Cardiac: Tachycardic but otherwise Regular rate and rhythm no murmurs no bruits Abdomen: Soft, nontender, no rebound or guarding, no flank pain Skin: Warm and dry, no rashes Neurologic: Grossly neurologically intact with no obvious asymmetries or abnormalities Extremities: No trauma, well perfused Psych: Cooperative, appropriate insight and affect Course Orders Ordered: ED Orders 10/11/24 22:05 Complete Blood Count AUTO DIFF Stat Comprehensive Metabolic Panel Stat HIV 1 & 2 Ab/Ag 4th Gen Combo Stat Lactate (Lactic Acid) Stat Procalcitonin Stat 10/11/24 22:09 Strep Grp A by PCR Rapid Stat 10/11/24 23:05 CT abdomen pelvis w con Stat 10/11/24 23:59 Hepatitis Acute Panel Stat 10/12/24 00:13 ETOH [Ethanol (ETOH)] Stat 10/12/24 00:45 PT [Prothrombin Time INR] Stat PTT Partial Thromboplastin Da Stat 10/12/24 00:51 Ictotest Urine Stat Urinalysis and Microscopic Stat 10/12/24 03:08 PHOS [Phosphorous] Stat Hydromorphone HCl (Hydromorphone Hcl 0.5 Mg/0.5 Ml Syringe) 0.5 mg IV Q15MIN PRN PRN Reason: Pain, Last Admin: 10/12/24 00:57 Dose: 0.5 mg Documented By: ROMA Acetylcysteine 20 g/ Dextrose 1,000 mls @ 80 mls/hr IV CONT RAHUL Last Admin: 10/12/24 04:21 Dose: 80 mls/hr Documented By: JERRICA Co-signed By: SHAGUFTA Discontinued Medications Sodium Chloride (Normal Saline 0.9%) 1,000 mls @ 1,000 mls/hr IV BOLUS ONE Stop: 10/11/24 22:57 Last Infusion: 10/11/24 23:35 Dose: Infused Documented By: Admin: 10/11/24 22:06 Dose: 1,000 mls/hr Documented By: SHAGUFTA Acetylcysteine 12.85194 g/ (Dextrose) 260.5543 mls @ 260.554 mls/hr IV NOW ONE Stop: 10/12/24 02:51 Last Infusion: 10/12/24 04:25 Dose: Infused Documented By: JERRICA Co-signed By: SHAGUFTA Admin: 10/12/24 03:11 Dose: 260.554 mls/hr Documented By: SHAGUFTA Co-signed By: JERRICA Ketorolac Tromethamine (Ketorolac 30 Mg/Ml Vial) 15 mg IV NOW ONE Stop: 10/11/24 21:59 Last Admin: 10/11/24 22:07 Dose: 15 mg Documented By: SHAGUFTA Lorazepam (Lorazepam 0.5 Mg Tablet) 2 mg PO NOW ONE Stop: 10/12/24 01:31 Last Admin: 10/12/24 01:32 Dose: 2 mg Documented By: SHAGUFTA Lorazepam (Lorazepam 0.5 Mg Tablet) 2 mg PO NOW ONE Stop: 10/12/24 04:34 Last Admin: 10/12/24 04:37 Dose: 2 mg Documented By: JERRICA Ondansetron HCl (Ondansetron 4 Mg/2 Ml Inj) 4 mg IV NOW ONE Stop: 10/11/24 21:59 Last Admin: 10/11/24 22:06 Dose: 4 mg Documented By: SHAGUFTA Vital Signs Vital signs: Vital Signs - 8 hr 10/11/24 23:26 10/11/24 23:26 10/11/24 23:30 Pulse Rate 102 H Respiratory Rate Blood Pressure 148/82 H 142/77 H Pulse Oximetry 98 Oxygen Delivery Method 10/11/24 23:30 10/12/24 00:00 10/12/24 00:00 Pulse Rate 105 H 97 H Respiratory Rate Blood Pressure 140/79 Pulse Oximetry 99 99 Oxygen Delivery Method 10/12/24 00:30 10/12/24 00:30 10/12/24 00:52 Pulse Rate 110 H Respiratory Rate Blood Pressure 122/66 158/95 H Pulse Oximetry 100 Oxygen Delivery Method 10/12/24 00:52 10/12/24 01:00 10/12/24 01:00 Pulse Rate 106 H 108 H Respiratory Rate Blood Pressure 139/77 Pulse Oximetry 85 L 100 Oxygen Delivery Method 10/12/24 01:30 10/12/24 01:30 10/12/24 02:00 Pulse Rate 104 H Respiratory Rate Blood Pressure 135/78 120/66 Pulse Oximetry 96 Oxygen Delivery Method Room Air 10/12/24 02:00 10/12/24 02:30 10/12/24 02:30 Pulse Rate 100 H 95 H Respiratory Rate 16 16 Blood Pressure 129/80 Pulse Oximetry 96 96 Oxygen Delivery Method Room Air 10/12/24 03:00 10/12/24 03:00 10/12/24 03:30 Pulse Rate 103 H Respiratory Rate Blood Pressure 133/79 135/90 Pulse Oximetry 97 Oxygen Delivery Method 10/12/24 03:30 10/12/24 04:00 10/12/24 04:00 Pulse Rate 96 H 107 H Respiratory Rate Blood Pressure 148/96 H Pulse Oximetry 95 97 Oxygen Delivery Method Room Air 10/12/24 04:30 10/12/24 04:30 10/12/24 05:00 Pulse Rate 109 H Respiratory Rate Blood Pressure 155/87 H 159/87 H Pulse Oximetry 96 Oxygen Delivery Method 10/12/24 05:00 10/12/24 05:30 10/12/24 05:30 Pulse Rate 106 H 104 H Respiratory Rate Blood Pressure 143/82 H Pulse Oximetry 100 97 Oxygen Delivery Method Room Air Room Air 10/12/24 06:00 10/12/24 06:00 10/12/24 06:30 Pulse Rate 107 H 108 H Respiratory Rate 14 Blood Pressure 156/84 H Pulse Oximetry 93 92 Oxygen Delivery Method Room Air Room Air 10/12/24 06:30 Pulse Rate Respiratory Rate Blood Pressure 142/79 H Pulse Oximetry Oxygen Delivery Method Medical Decision Making Lab Data 10/11/24 22:05 10/11/24 22:05 Labs: Lab Results 10/11/24 10/11/24 10/12/24 Range/Units 22:05 22:39 00:13 WBC 9.2 (4.5-11.0) X10^3/uL RBC 5.13 (4.5-5.9) X10^6/uL Hgb 16.8 (13.5-17.5) g/dL Hct 47.7 (41-53) % MCV 93.0 (80-100) fL MCH 32.8 (26-34) PG MCHC 35.2 (30-36) % RDW 13.4 (11.6-14.8) % Plt Count 158 (150-400) X10^3/uL Neut % (Auto) 74.3 (50-75) % Lymph % (Auto) 14.1 L (25-40) % Dewitt % (Auto) 5.3 (3-14) % Eos % (Auto) 5.9 H (2-4) % Baso % (Auto) 0.4 (0-2) % Neut # (Auto) 6800 (6300-3069) /uL Lymph # (Auto) 1300 (2815-6530) /uL Dewitt # (Auto) 500 (0-900) /uL Eos # (Auto) 500 H (0-450) /uL Baso # (Auto) 0 (0-100) /uL PT 18.1 H (9.4-12.5) SECONDS INR 1.6 H (0.9-1.3) APTT 32 (25.1-36.5) SECONDS Sodium 133 L (137-145) mmol/L Potassium 4.2 (3.4-5.1) mmol/L Chloride 97 L (98-107) mmol/L Carbon Dioxide 25 (22-32) mmol/L BUN 13 (9-20) mg/dL Creatinine 0.81 (0.66-1.25) mg/dL Estimated GFR > 60 (>60) mL/min BUN/Creatinine Ratio 16.0 (6-22) Glucose 85 (70-99) mg/dL Lactate 2.1 (0.7-2.1) mmol/L Calcium 8.9 (8.4-10.2) mg/dL Phosphorus (2.5-4.5) mg/dL Total Bilirubin 3.5 H (0.2-1.3) mg/dL AST 34870 H (17-59) IU/L ALT 8450 H (<50) IU/L Alkaline Phosphatase 196 H (38-126) U/L Total Protein 7.8 (6.3-8.2) g/dL Albumin 4.3 (3.5-5.0) g/dL Globulin 3.5 (1.7-4.1) g/dL Albumin/Globulin Ratio 1.2 (1.0-2.8) Procalcitonin 11.8 H (<0.5) ng/mL Urine Color Urine Appearance Urine pH (4.5-8.0) Ur Specific Paterson (1.000-1.035) Urine Protein (Negative) Urine Glucose (UA) (Negative) g/dL Urine Ketones (NEGATIVE) Urine Occult Blood (Negative) Urine Nitrate (Negative) Urine Bilirubin (NEGATIVE) Ur Bilirubin Confirm (Negative) Urine Urobilinogen (0.2) E.U./dL Ur Leukocyte Esterase (NEGATIVE) Urine RBC (0-5/HPF) Urine WBC (0-5/HPF) Ur Squamous Epith Cells (0-5/HPF) Urine Bacteria (None) Ur Culture Indicated? Vol Urine Centrifuged Ethyl Alcohol 53 H (<10) mg/dL HIV 1&2 Ab/P24 Ag 4thGn Negative (NEGATIVE) Group A Strep (PCR) (Negative) 10/12/24 10/12/24 10/12/24 Range/Units 00:16 00:51 03:08 WBC (4.5-11.0) X10^3/uL RBC (4.5-5.9) X10^6/uL Hgb (13.5-17.5) g/dL Hct (41-53) % MCV (80-100) fL MCH (26-34) PG MCHC (30-36) % RDW (11.6-14.8) % Plt Count (150-400) X10^3/uL Neut % (Auto) (50-75) % Lymph % (Auto) (25-40) % Dewitt % (Auto) (3-14) % Eos % (Auto) (2-4) % Baso % (Auto) (0-2) % Neut # (Auto) (0623-2782) /uL Lymph # (Auto) (8106-3690) /uL Dewitt # (Auto) (0-900) /uL Eos # (Auto) (0-450) /uL Baso # (Auto) (0-100) /uL PT (9.4-12.5) SECONDS INR (0.9-1.3) APTT (25.1-36.5) SECONDS Sodium (137-145) mmol/L Potassium (3.4-5.1) mmol/L Chloride (98-107) mmol/L Carbon Dioxide (22-32) mmol/L BUN (9-20) mg/dL Creatinine (0.66-1.25) mg/dL Estimated GFR (>60) mL/min BUN/Creatinine Ratio (6-22) Glucose (70-99) mg/dL Lactate (0.7-2.1) mmol/L Calcium (8.4-10.2) mg/dL Phosphorus 3.3 (2.5-4.5) mg/dL Total Bilirubin (0.2-1.3) mg/dL AST (17-59) IU/L ALT (<50) IU/L Alkaline Phosphatase (38-126) U/L Total Protein (6.3-8.2) g/dL Albumin (3.5-5.0) g/dL Globulin (1.7-4.1) g/dL Albumin/Globulin Ratio (1.0-2.8) Procalcitonin (<0.5) ng/mL Urine Color [facility] Urine Appearance Clear Urine pH 5.5 (4.5-8.0) Ur Specific Paterson 1.015 (1.000-1.035) Urine Protein 2+ H (Negative) Urine Glucose (UA) Trace H (Negative) g/dL Urine Ketones 1+ H (NEGATIVE) Urine Occult Blood 1+ H (Negative) Urine Nitrate Negative (Negative) Urine Bilirubin 2+ H (NEGATIVE) Ur Bilirubin Confirm Positive H (Negative) Urine Urobilinogen 2.0 H (0.2) E.U./dL Ur Leukocyte Esterase Negative (NEGATIVE) Urine RBC 1-5/hpf (0-5/HPF) Urine WBC None seen (0-5/HPF) Ur Squamous Epith Cells None seen (0-5/HPF) Urine Bacteria None seen (None) Ur Culture Indicated? Cult not indicated Vol Urine Centrifuged 10ml (spun) Ethyl Alcohol (<10) mg/dL HIV 1&2 Ab/P24 Ag 4thGn (NEGATIVE) Group A Strep (PCR) Negative (Negative) Imaging Data CT sinus: Radiologist's Impression: PROCEDURE: CT SINUS W CON INDICATIONS: sinus pain, sepsis TECHNIQUE: After the administration of intravenous contrast, 3.0 mm axial images acquired from the frontal sinuses to the mid-sella, with coronal and sagittal reformats. For radiation dose reduction, the following was used: automated exposure control, adjustment of mA and/or kV according to patient size. COMPARISON: None. FINDINGS: Image quality: Excellent. Sinuses: There is overall appearance moderate pansinus mucosal thickening. No fluid levels. Ostiomeatal Complexes: There is occlusion right and mild narrowing on secondary to mucosal. Miscellaneous: Visualized intra-orbital contents are normal. No jennifer bullosa. Rightward nasal septal deviation. Paradoxical IMPRESSION: Moderate pansinus mucosal thickening consistent with sinus disease as above. No fluid levels. Dictated by: Jaye Chavis M.D. on 10/11/2024 at 22:30 CT scan - abdomen/pelvis: Radiologist's Impression: PROCEDURE: CT ABDOMEN PELVIS W CON INDICATIONS: RUQ quadrant pain, elevated liver enzymes TECHNIQUE: After the administration of intravenous contrast, axial sections acquired from the lung bases to the pubic symphysis. Coronal and sagittal reformats were performed. For radiation dose reduction, the following was used: automated exposure control, adjustment of mA and/or kV according to patient size. COMPARISON: None. FINDINGS: Image quality: Diagnostic. Lower Chest: No significant findings. ABDOMEN: Liver: No solid mass. Diffuse steatosis. Liver measures 19 cm Gallbladder: No radiopaque gallstones or wall thickening. Biliary ducts: No biliary dilation. Pancreas: No ductal dilation. Spleen: Size is within normal limits. Adrenal Glands: No adrenal nodules. Kidneys and Ureters: No hydronephrosis. No solid mass. No complex renal cystic lesion which requires follow up. Stomach and Bowel: Normal colonic caliber, without significant wall thickening. [id number] colonic stool. Peritoneum: No abnormal intraperitoneal fluid. No free air. Ventral Wall: No significant ventral hernia. Abdominal Nodes: No retroperitoneal or mesenteric adenopathy by size criteria. Vessels: Aorta and inferior vena cava are normal in size. PELVIS: Pelvic Organs: Unremarkable. Bladder: No bladder wall thickening, accounting for underdistention. Pelvic Nodes: No enlarged lymph nodes. Miscellaneous: No inguinal hernias are seen. Bones: No aggressive osseous abnormality. IMPRESSION: Marked hepatomegaly with steatosis. [id number] colonic stool without obstruction. Dictated by: Jaye Chavis M.D. on 10/11/2024 at 23:41 MDM Narrative Medical decision making narrative: CC: Fever, facial pain, purulent nasal discharge, nose is red Data collected from: patient Medical records reviewed: Hospital admission in the end of July for cellulitis reviewed Differential considered: Sinusitis, sepsis, strep throat, viral syndrome Exam documented above, pertinent findings include: Mid facial pain, nose is red sclera are injected, significant cervical adenopathy, tachycardic, lungs are clear Lab Test results independently reviewed as above. Pertinent findings: Cbc reassuring normal white count at 9.2 no anemia normal platelets Chemistries show normal renal function and electrolytes Significantly abnormal liver studies including bilirubin at 3.5, AST at 14,317, ALT at 8450, alk-phos slightly elevated at 196. Procalcitonin is elevated at 11.8 PT minimally elevated with equivalent INR of 1.8 and PTT within normal limits HIV negative Acute hepatitis panel pending Imaging studies independently reviewed: CT scan of the abdomen: Liver: No solid mass. Diffuse steatosis. Liver measures 19 cm Gallbladder: No radiopaque gallstones or wall thickening. Biliary ducts: No biliary dilation. Pancreas: No ductal dilation. Spleen: Size is within normal limits. CT scan of the sinuses done with initial complaints of fever chills and significant sinus pressure shows pansinusitis moderate mucosal thickening without air-fluid levels Treatments: 1 L of saline, Toradol, Zofran Re-evaluations: Discussed findings with the bilirubin elevated, AST ALT still pending presuming significantly elevated and alk-phos high. He states that he had a viral-like illness starting 3 or 4 days ago initially with a sore throat and then progressing up into his nose. He does have significant right upper quadrant tenderness. When I discuss the elevated liver enzyme elevation, he asked if this could be due to his drinking. He states that he used to drink very heavily, now we will go through 750 cc of hard alcohol every other day. Does not have withdrawal symptoms. He notes that he has had a recent new sexual partner does not believe he has been exposed to HIV/aids but would appreciate having this ruled out as well. Possibility viral hepatitis, primary aids illness, ascending cholangitis, acute cholecystitis and alcoholic hepatitis or all a possibility. Discussion: 29-year-old gentleman comes in with fevers and chills, notes viral type symptoms approximately 4 days ago. He also complains of abdominal bloating and some abdominal pain. On physical exam he does have some right upper quadrant tenderness, nose is slightly erythematous any has tenderness over maxillary and frontal sinuses. Initial concern was for severe sinusitis, CT scan shows mucosal thickening but no obstructed air-fluid levels. Incidentally appreciated on blood work was elevated bilirubin was significantly elevated AST and ALT and slightly elevated alk-phos. Subsequent CT scan of the abdomen shows diffuse steatosis without gallbladder abnormalities ductal dilatation no pancreatic abnormalities and spleen is appropriate. Expanded hepatology workup has been added to include PT, PTT, acute hepatitis panel, HIV testing given his sore throat as well. He does not have significant HIV risk factors but did have a new female partner recently. He does have moderate alcohol use disorder, states that he drinks 750 mL of alcohol every other day. Last drink was number of out words ago and alcohol level on arrival is at 53. He states that he has decreased his alcohol use enough that he does not have withdrawal symptoms and with alcohol level currently at 53 his CIWA score is 0. Discussed with our hospitalist, given the dramatic elevation with AST ALT and fevers and chills his recommendation was admission to a facility where inpatient gastroenterology consultation was available. Currently no beds available at [facility] in [place]. 130am findings and concerns reviewed with patient. Heart rate is still elevated and blood pressure is slightly elevated. No tremor or other signs of alcohol withdrawal. Unsure if these vital signs are his baseline, related to alcohol withdrawal are related to his presumed viral hepatitis. We will go ahead and give him 2 mg of Ativan and reassess, he states his last alcohol use was somewhere between 8 and 12 hours ago. 230am VINAY Mast at [facility]. Recommends starting mucomyst therapy and discussion with admit to facility that has the capacity for liver transplant 240am call to composition floor layer pharmacist for help with ordering Mucomyst 3am [employer] [facility]. [facility] but medicine bed would be OK with [facility] as option #2. Will wait to hear from transfer center on bed aviailability then speak with the hospitalist. N Acetylcysteine ordered and phos level added. [address] Dr Lee Chanel, hospitalist. Pt accepted at [facility], will arrange for transport when bed is available, Patient is updated on plans. Questions are answered. Discharge Plan Departure Patient Disposition: [facility] Clinical Impression: Acute hepatitis in viral disease, Alcohol use disorder Prescriptions: No Action No Known Home Medications Referrals: Miscellaneous,DoctorMD [Primary Care Provider, Medical]
[2024-10-11] MEDS: SODIUM CHLORIDE 0.9% 1,000 ML 1000 ML IV (22:06)
[2024-10-11] MEDS: ONDANSETRON 4 MG/2 ML INJ IV (22:06)
[2024-10-11] MEDS: KETOROLAC 30 MG/ML VIAL 15 MG IV (22:07)
[2024-10-11 22:20] LABS: Add Manual Diff / Slide Review NO; Hematocrit 47.7 % (41-53); Hemoglobin 16.8 g/dL (13.5-17.5); Lymphocytes Absolute Auto 1300 /uL (1100-4500); Mean Corpuscular HGB Conc 35.2 % (30-36); Mean Corpuscular Hemoglobin 32.8 PG (26-34); Mean Corpuscular Volume 93.0 fL (80-100); Platelet Count 158 X10^3/uL (150-400)
[2024-10-11 22:27] LABS: Albumin 4.3 g/dL (3.5-5.0); Albumin Globulin Ratio 1.2 (1.0-2.8); Alkaline Phosphatase 196 U/L (38-126); Blood Urea Nitrogen 13 mg/dL (9-20); Calcium 8.9 mg/dL (8.4-10.2); Carbon Dioxide 25 mmol/L (22-32); Chloride 97 mmol/L (98-107); Estimated Glomerular Filt Rate > 60 mL/min (>60); Globulin 3.5 g/dL (1.7-4.1); Glucose 85 mg/dL (70-99); Lactate (Lactic Acid) 2.1 mmol/L (0.7-2.1); Potassium 4.2 mmol/L (3.4-5.1); Sodium 133 mmol/L (137-145); Total Protein 7.8 g/dL (6.3-8.2)
[2024-10-11 22:44] LABS: Procalcitonin 11.8 ng/mL (<0.5)
--- NOTE | 2024-10-11 23:05 | DI.CT.S_ITS ---
PROCEDURE: CT ABDOMEN PELVIS W CON INDICATIONS: RUQ quadrant pain, elevated liver enzymes TECHNIQUE: After the administration of intravenous contrast, axial sections acquired from the lung bases to the pubic symphysis. Coronal and sagittal reformats were performed. For radiation dose reduction, the following was used: automated exposure control, adjustment of mA and/or kV according to patient size. COMPARISON: None. FINDINGS: Image quality: Diagnostic. Lower Chest: No significant findings. ABDOMEN: Liver: No solid mass. Diffuse steatosis. Liver measures 19 cm Gallbladder: No radiopaque gallstones or wall thickening. Biliary ducts: No biliary dilation. Pancreas: No ductal dilation. Spleen: Size is within normal limits. Adrenal Glands: No adrenal nodules. Kidneys and Ureters: No hydronephrosis. No solid mass. No complex renal cystic lesion which requires follow up. Stomach and Bowel: Normal colonic caliber, without significant wall thickening. [id number] colonic stool. Peritoneum: No abnormal intraperitoneal fluid. No free air. Ventral Wall: No significant ventral hernia. Abdominal Nodes: No retroperitoneal or mesenteric adenopathy by size criteria. Vessels: Aorta and inferior vena cava are normal in size. PELVIS: Pelvic Organs: Unremarkable. Bladder: No bladder wall thickening, accounting for underdistention. Pelvic Nodes: No enlarged lymph nodes. Miscellaneous: No inguinal hernias are seen. Bones: No aggressive osseous abnormality. IMPRESSION: Marked hepatomegaly with steatosis. [id number] colonic stool without obstruction. Dictated by: Jaye Chavis M.D. on 10/11/2024 at 23:41 Approved by: Jaye Chavis M.D. on 10/11/2024 at 23:43
[2024-10-11 23:17] LABS: Alanine Aminotransferase 8450 IU/L (<50)
[2024-10-11 23:37] LABS: HEMOLYSIS 26 (0-50)
[2024-10-11 23:48] LABS: Reflexed Lactate in 2 Hours Y
[2024-10-12] VITALS (15 sets, daily range): BP systolic 120–159; BP diastolic 66–96; PULSE 95–110; RESP 14–16; O2SAT 85–100
[2024-10-12 00:17] LABS: HIV 1 & 2 Ab/Ag 4th Gen Combo NEGATIVE (NEGATIVE)
[2024-10-12 00:24] LABS: Ethanol (ETOH) 53 mg/dL (<10)
[2024-10-12 00:54] LABS: INR 1.6 (0.9-1.3); Prothrombin Time 18.1 SECONDS (9.4-12.5)
[2024-10-12 00:55] LABS: Strep Grp A by PCR Rapid Negative (Negative)
[2024-10-12 00:56] LABS: PTT Partial Thromboplastin Tim 32 SECONDS (25.1-36.5)
[2024-10-12 01:00] LABS: Appearance Urine UA CLEAR; Bilirubin Urine UA 2+ (NEGATIVE); Color Urine UA ORANGE; Glucose Urine UA TRACE g/dL (Negative); Ketones Urine UA 1+ (NEGATIVE); Leukocyte Esterase Urine UA NEGATIVE (NEGATIVE); Nitrite Urine UA NEGATIVE (Negative); Occult Blood Urine UA 1+ (Negative); Protein Urine UA 2+ (Negative); Specific Gravity Urine UA 1.015 (1.000-1.035); Urobilinogen Urine UA 2.0 E.U./dL (0.2); pH Urine UA 5.5 (4.5-8.0)
--- NOTE | 2024-10-12 01:02 | PC.NURSE ---
Pt laying on left side, RA, A&Ox4, breathing even/equal/unlabored at this time. Pt states that they have had intermittent dark urine over the last 4 days. Urine sample sent to lab. Call light within reach, no other needs at this time
[2024-10-12 01:03] LABS: Ictotest Urine Positive (Negative)
[2024-10-12 01:04] LABS: Culture Indicated Urine Cult Not Indicated
[2024-10-12] MEDS: WATER IV ×2 (03:11→04:21)
[2024-10-12] MEDS: DEXTROSE 5% IV ×2 (03:11→04:21)
[2024-10-12] MEDS: ACETYLCYSTEINE IV ×2 (03:11→04:21)
[2024-10-12 03:15] LABS: Phosphorous 3.3 mg/dL (2.5-4.5)
[2024-10-13 04:09] LABS: Hepatitis A Antibody IgM Negative (Negative); Hepatitis B Core Antibody IgM Negative (Negative); Hepatitis C Antibody Non Reactive (Non Reactive)
== END 2024-10-12 07:17 | disposition short-term general hospital (02) ==
PROVIDERS: Emergency Provider Emergency Medicine
DX: B17.9 Acute viral hepatitis, unspecified (principal); F10.90 Alcohol use, unspecified, uncomplicated; R50.9 Fever, unspecified; R00.0 Tachycardia, unspecified; R10.9 Unspecified abdominal pain
CPT/HCPCS: 36415; 70487; 71045; 74177; 80053; 80074; 80320; 81001; 83605; 84100; 84145; 85025; 85610; 85730; 87040; 87389; 87651; 96361; 96365; 96366; 96375; 96376; 99284; 99285; J0132; J1171; J1885; J2405; Q9967

== ENCOUNTER 2025-03-22 01:16 | Emergency (ER) | payer OTHER, SELFPAY ==
[2024-07-30 20:00] VITALS: BMI 23.3
--- OUTSIDE RECORDS SUMMARY | 2025-03-22 01:23 | XMS_ITS | Clinical Summary ---
Author Organization [facility] gt Address [address] [place] [address] Care Team Providers Care Occupational Therapy Assistant Name Role Phone Pcp Primary Care Provider Unavailabl e Allergies No known active allergies Medications acetaminophen 500 MG tablet Take 2 tablets (1,000 mg) by mouth every 6 hours. 100 tablet 10/05/2022 2:16 PM PDT 10/05/2022 Active ibuprofen 600 MG tablet Take 1 tablet (600 mg) by mouth every 6 hours. 60 tablet 10/05/2022 2:16 PM PDT 10/05/2022 Active ondansetron 4 MG tablet Take 1 tablet (4 mg) by mouth every 8 hours as needed for nausea/vomiti ng. 12 tablet 10/05/2022 2:16 PM PDT 10/05/2022 Active oxyCODONE 5 MG tablet Take 1 tablet (5 mg) by mouth every 3 hours as needed for moderate pain or severe pain. 25 tablet 10/05/2022 2:16 PM PDT 10/05/2022 Active polyethylene glycol 3350 17 GM/SCOOP oral powder Take 17 g by mouth daily. Dissolve one capful (17 g) in 4-8 ounces of water and drink once daily for constipation. 238 g 10/05/2022 2:16 PM PDT 10/06/2022 Active Active Problems Problem Noted Date Diagnosed Date Blast injury of left hand 10/04/2022 Overview (10/04/2022): Added automatically from request for surgery [id number] Immunizations Immunization Administration Dates Next Due DTP 11/19/1995, 5,1994,03/10/19 94 DTaP (Infanrix) 04/26/1998 Hepatitis B pediatric/adolescent 06/27/2010 Hepatitis B, unspecified 1994,1994,1 Hib, unspecified 01/12/1995, 5,1994,03/10/19 94 MMR 10/14/1999,01/12/1995 Poliovirus live oral trivalent OPV 04/26,1994,1994,03/10/19 94 Tdap 10/04/2022 Varicella live (Varivax) 06/21/1998 Social History Tobacco Use Types Packs/Day Years Used Date Smoking Tobacco: Every Day Cigarettes Tobacco Cessation:Ready to Q uit: Not Asked; Counseling Given: Not Answered Alcohol Use Standard Drinks/Week Comments Yes 0 (1 standard drink = 0.6 oz pur e alcohol) Sex and Gender Information Value Date Recorded Sex Assigned at Not on file Legal Sex Male 12:40 AM PDT Gender Identity Not on file Sexual Orientation Not on file Last Filed Vital Signs Vital Sign Reading Time Taken Comments Blood Pressure 140/93 10/21/2022 11:35 AM PDT Pulse 101 10/21/2022 11:35 AM PDT Temperature 36.8 C (98.2 F) 10/21/2022 11:35 AM PDT Respiratory Rate 14 10/16/2022 11:14 PM PDT Oxygen Saturation 100% 10/16/2022 11:14 PM PDT Inhaled Oxygen Concentration - - Weight 79.4 kg (175 lb) 10/04/2022 5:24 AM PDT Height 185.4 cm (6' 1) 10/04/2022 5:24 AM PDT Body Mass Index 23.09 10/04/2022 5:24 AM PDT Plan of Treatment Health Maintenance Due Date Last Done Comments Hepatitis C Screening 1994 Depression Screening (PHQ-2) 2006 HIV Screening 2009 HPV Vaccine (1 - 3-dose SCDM series) 2021 COVID-19 Vaccine ( season) 2024 Influenza Vaccine (#1) 2025 DTaP, Tdap and Td Vaccines (7 - Td or Tdap) 10/04/2032 10/04/2022, 04/26/1998, 11/19/1995, Additional history exists Hepatitis B Vaccine Completed 06/27/2010, 1994, 1994, Additional history exists Hepatitis A Vaccine Aged Out No longe r eligible based on patient's age to complete this topic Meningococcal B Vaccine Aged Out No l onger eligible based on patient's age to complete this topic Pneumococcal Vaccine: Pediatrics (0-5 years) and At-Risk Patients (6-49 years) Aged Out No longer eligible based on patient's age to complete this topic Procedures Procedure Name Priority Date/Time Associated Diagnosis Comments PREMANAGE Routine 03/22/2025 3:21 AM PST Procedure Note - 03/22/2025 3:21 AM PSTThis note is in progress. Patient has visited an external emergency department or has beenhospitalized outside of [facility] --MOST RECENT VISIT-- ED Admit:03/22/25 01:16 Location:[facility] Attending Provider:Emmanuelle^ED* Encounter Type:Emergency Major Class:Emergency Chief Complaint:R Leg / R Side Head swelling Diagnosis: ED/[facility] VISIT TRACKING (3 MO.) Visit Date Location [facility] TypeDx/Complaint -------- ------- [facility] / RSide Head swelling INPATIENT VISIT TRACKING (1 MO.) Visit Date Location [facility] Type Dx/Complaint -------- ------- ---- ED VISIT COUNT (12 MO.) Visits Location ------ --------- 3 [facility] 3 Total Note: Visits indicate total known visits. --- --CARE GUIDELINES-- (Below are the most recent care guidelines entered by a Medicine careprovider in [facility]. If Medicine guidelines do not exist in [facility], the mostrecent care guideline entered by an external hospital care provider isdisplayed.) [facility] has no Care Guidelines for this patient. Security Events No recent Security Events currently on file --CARE PROVIDERS-- CARE PROVIDERS Name Phone TypeService Dates ---- ----- CLARITA FULLER [phone] Physician Extension Educator: Deya - Current from Last 3 Months Insurance [employer] [facility] MEDICAID Advance Directives For more information, please contact: [phone] * Full Code (Latest Code Status on File) Date Activated Date Inactivated Comments 10/04/2022 5:12 AM 10/05/2022 5:47 PM Care Teams Occupational Therapy Assistant Relationship Specialty Start Date End Date Pcp Identifies patients without a PCP or unassigned PCP - General 10/04/22
[2025-03-22 01:34] VITALS: BP 158/110; PULSE 95; RESP 18; TEMP 37.1; O2SAT 98; BMI 23.7
--- NOTE | 2025-03-22 01:41 | ED.GENADULT ---
HPI - General Adult General Chief complaint: Skin/Abscess/Foreign Body Stated complaint: R Leg / R Side Head swelling Time Seen by Provider: 03/22/25 01:31 History of Present Illness HPI narrative: 30y M presents with R leg cellulitis seen at 4-5 days ago given antibiotics but never got it filled stated the swelling went down on its own. He has been doing daily dressing changes and tonite he took the dressing off and fluid and piece of skin came off with the dressing. He states there is also one in the back of his head that is getting more swollen and painful also. Other than what is stated 14 pt ROS is negative. Related Data Home Medications ?Medication ?Instructions ?Recorded ?Confirmed No Known Home Medications 10/12/24 10/12/24 Allergies Allergy/AdvReac Type Severity Reaction Status Date / Time No Known Drug Allergies Allergy Verified 03/22/25 01:34 Review of Systems Review of Systems ROS Unobtainable: All systems reviewed & are unremarkable except as noted in HPI and below Patient History Medical History (Updated 10/27/24 @ 00:01 by ) Sinusitis, acute Social History alcohol intake: current tobacco type: cigarettes alcohol intake frequency: 3 or more drinks per day Alcohol type: hard liquor Exam Narrative Exam Narrative: GENERAL: [30] year old patient appears stated age. Well-developed patient, in mild distress. HEAD: Atraumatic. Normocephalic. EYES: Pupils equal round and reactive. Extraocular motions intact. No scleral icterus. No injection or drainage. NECK: Trachea midline. Non tender EXTREMITIES: R lateral distal thigh soft tissue swelling jagged irregular ulceration with surrounding cellulitis with min fluctuance 3x3cm no streaking seen. Back of L occiput dime size abscess with min fluctuance BACK: Nontender without deformity or crepitance. No flank tenderness. NEURO: AOx3. SKIN: No rash or erythema of visible areas Initial Vital Signs Initial Vital Signs: Vital Signs Temperature 98.7 F 03/22/25 01:34 Pulse Rate 95 H 03/22/25 01:34 Respiratory Rate 18 03/22/25 01:34 Blood Pressure 158/110 H 03/22/25 01:34 Pulse Oximetry 98 03/22/25 01:34 Oxygen Delivery Method Room Air 03/22/25 01:34 Course Orders Ordered: ED Orders 03/22/25 01:54 CBC Auto Diff [Complete Blood Count AUTO DIFF] Stat CMP [Comprehensive Metabolic Panel] Stat Lactate (Lactic Acid) Stat 03/22/25 01:55 CT LE RT w con Stat 03/22/25 02:11 Blood Culture Stat Lactated Ringer's (Lactated Ringers) 1,000 mls @ 1,000 mls/hr IV BOLUS ONE Stop: 03/22/25 02:55 Vancomycin HCl/Dextrose (Vancomycin) 2,000 mg in 400 mls @ 200 mls/hr IV NOW ONE Stop: 03/22/25 04:29 Discontinued Medications Vancomycin HCl (Vancomycin) 1,000 mg in 200 mls @ 200 mls/hr IV NOW ONE Stop: 03/22/25 02:54 Last Admin: 03/22/25 02:48 Dose: Not Given Documented By: Piperacillin Sod/Tazobactam (Sod 4.5 gm/ Sodium Chloride) 100 mls @ 200 mls/hr IV NOW ONE Stop: 03/22/25 01:55 Last Admin: 03/22/25 02:14 Dose: 200 mls/hr Documented By: KATHLEEN Ketorolac Tromethamine (Ketorolac 30 Mg/Ml Vial) 15 mg IV NOW ONE Stop: 03/22/25 01:57 Last Admin: 03/22/25 02:12 Dose: 15 mg Documented By: KATHLEEN Vital Signs Vital signs: Vital Signs - 8 hr 03/22/25 01:34 Temperature 98.7 F Pulse Rate 95 H Respiratory Rate 18 Blood Pressure 158/110 H Pulse Oximetry 98 Oxygen Delivery Method Room Air Medical Decision Making Lab Data 03/22/25 01:54 03/22/25 01:54 Labs: Lab Results 03/22/25 Range/Units 01:54 WBC 12.5 H (4.5-11.0) X10^3/uL RBC 4.98 (4.5-5.9) X10^6/uL Hgb 15.5 (13.5-17.5) g/dL Hct 44.8 (41-53) % MCV 89.9 (80-100) fL MCH 31.2 (26-34) PG MCHC 34.7 (30-36) % RDW 12.6 (11.6-14.8) % Plt Count 386 (150-400) X10^3/uL Neut % (Auto) 64.9 (50-75) % Lymph % (Auto) 21.1 L (25-40) % [place] % (Auto) 6.5 (3-14) % Eos % (Auto) 6.5 H (2-4) % Baso % (Auto) 1.0 (0-2) % Neut # (Auto) 8100 H (8327-8145) /uL Lymph # (Auto) 2600 (3072-1874) /uL [place] # (Auto) 800 (0-900) /uL Eos # (Auto) 800 H (0-450) /uL Baso # (Auto) 100 (0-100) /uL Sodium 138 (137-145) mmol/L Potassium 3.9 (3.4-5.1) mmol/L Chloride 105 (98-107) mmol/L Carbon Dioxide 25 (22-32) mmol/L BUN 12 (9-20) mg/dL Creatinine 0.84 (0.66-1.25) mg/dL Estimated GFR > 60 (>60) mL/min BUN/Creatinine Ratio 14.3 (6-22) Glucose 108 H (70-99) mg/dL Lactate 0.7 (0.7-2.1) mmol/L Calcium 9.3 (8.4-10.2) mg/dL Total Bilirubin 1.0 (0.2-1.3) mg/dL AST 22 (17-59) IU/L ALT 20 (<50) IU/L Alkaline Phosphatase 99 (38-126) U/L Total Protein 7.6 (6.3-8.2) g/dL Albumin 4.4 (3.5-5.0) g/dL Globulin 3.2 (1.7-4.1) g/dL Albumin/Globulin Ratio 1.4 (1.0-2.8) MDM Narrative Medical decision making narrative: All labwork, vital signs, manager home improvement note, medication list, previous ER visits and all imaging studies reviewed. WBC 12.5, hg 15.5, plt 386, lactate 0.7, lfts nml, cultures obtained x 2. Given vanco 2g IV, zosyn 4.5g IV. Differential dx cellulitis, abscess, mrsa. D/c home on bactrim and cephalexin rx. CT scan superficial laceration/abrasion of the lateral distal right thigh without hematoma or involvement of the underlying musculature or osseous structures. Discharge Plan Departure Prescriptions: No Action No Known Home Medications Referrals: Miscellaneous,DoctorMD [Primary Care Provider, Medical]
[2025-03-22 01:42] VITALS: BMI 23.7
--- NOTE | 2025-03-22 01:55 | DI.CT.S_ITS ---
PROCEDURE: CT LE RT W CON INDICATIONS: R thigh cellulitis TECHNIQUE: After the administration of intravenous contrast, 3 mm axial sections acquired of the right lower extremity , with coronal and sagittal reformats. COMPARISON: None. FINDINGS: Focal skin defect along the lateral aspect of the mid right thigh with surrounding skin thickening and subcutaneous edema. No soft tissue gas. No deep fascial edema. No fluid collection. No radiopaque foreign body. No bone erosion. No fracture. No joint effusion. IMPRESSION: Cellulitis without evidence of abscess or osteomyelitis Dictated by: Bismark Zeng M.D. on 03/22/2025 at 8:00 Approved by: Bismark Zeng M.D. on 03/22/2025 at 8:03
[2025-03-22 02:10] LABS: Add Manual Diff / Slide Review NO; Hematocrit 44.8 % (41-53); Hemoglobin 15.5 g/dL (13.5-17.5); Lymphocytes Absolute Auto 2600 /uL (1100-4500); Mean Corpuscular HGB Conc 34.7 % (30-36); Mean Corpuscular Hemoglobin 31.2 PG (26-34); Mean Corpuscular Volume 89.9 fL (80-100); Platelet Count 386 X10^3/uL (150-400)
[2025-03-22] MEDS: KETOROLAC 30 MG/ML VIAL 15 MG IV ×2 (02:12→03:17)
[2025-03-22] MEDS: PIPERACILLIN/TAZO 4.5 GM in SODIUM CHLORIDE 0.9% 100 ML IV (02:14)
[2025-03-22 02:20] LABS: Alanine Aminotransferase 20 IU/L (<50); Albumin 4.4 g/dL (3.5-5.0); Albumin Globulin Ratio 1.4 (1.0-2.8); Alkaline Phosphatase 99 U/L (38-126); Blood Urea Nitrogen 12 mg/dL (9-20); Calcium 9.3 mg/dL (8.4-10.2); Carbon Dioxide 25 mmol/L (22-32); Chloride 105 mmol/L (98-107); Estimated Glomerular Filt Rate > 60 mL/min (>60); Globulin 3.2 g/dL (1.7-4.1); Glucose 108 mg/dL (70-99); HEMOLYSIS < 15 (0-50); Lactate (Lactic Acid) 0.7 mmol/L (0.7-2.1); Potassium 3.9 mmol/L (3.4-5.1); Sodium 138 mmol/L (137-145); Total Protein 7.6 g/dL (6.3-8.2)
[2025-03-22] MEDS: LACTATED RINGERS 1,000 ML 1000 ML IV (03:00)
[2025-03-22] MEDS: VANCOMYCIN 2,000 MG/400 ML PIGGYBACK 200 MG IV (03:00)
[2025-03-22 03:22] VITALS: BP 163/100; PULSE 96; RESP 18; O2SAT 98
--- NOTE | 2025-03-22 03:42 | PC.RNWOUND ---
Right Thigh Right Thigh Left side of neck behind ear Left side of neck behind ear
[2025-03-22 05:34] VITALS: BP 156/98; PULSE 94; RESP 18; O2SAT 99
== END 2025-03-22 05:45 | disposition home or self-care (01) ==
PROVIDERS: Emergency Provider Family Medicine
DX: L03.115 Cellulitis of right lower limb (principal); S71.111A Laceration without foreign body, right thigh, initial encounter; X58.XXXA Exposure to other specified factors, initial encounter
CPT/HCPCS: 36415; 73701; 80053; 83605; 85025; 87040; 96365; 96366; 96367; 96375; 96376; 99284; J1885; J2543; J3375; J7050; J7120; Q9967